=== PATIENT | female | born 1940 | race Caucasian/White ===

== ENCOUNTER 2018-05-20 12:22 | Emergency (ER) | payer MEDICARE, BC ==
[~2018-05-20] VITALS: Ht 157.5 cm; Wt 81.7 kg
[~2018-05-20 12:22] MED LIST: ACET325 PO; AEROECLIPSE II1 EACH INH; ALBU90OI INH; ALLO300; ALLO300 PO; ANTOXYBENA RIGHTEAR; ASMACORT; ASPI81CH PO; ASPI81EC; ASPI81EC PO; ATOR20 PO; AZIT250 PO; AZIT500 PO; Amlodipine Bes2.5 MG PO; Ativan0.5 MG PO; Avapro300 MG PO; BENZ100A PO; BUDE200IP INH; CALCAVITDA PO; CEFP200 PO; CHOL10002 PO; CODGUAEL PO; Cleocin HCl300 MG PO; Combigan Eye Dro5 ML OP; DIPH50 PO; DORZOPSO; DOXY100 PO; Doxycycline Hy100 MG PO; ERGO400; FISH1000; FISH1000 PO; FLONASE ALLERG9.9 ML; FLUT.05NI; FLUV20; FURO40; FURO40 PO; Glimepiride1 MG PO; Guaifenesin-Co118 ML PO; HYDGUAL120 PO; IBUP400; IBUP400 PO; IRBE150; IRBE150 PO; LATA.005SO BOTHEYES; LEVSOD125 PO; LEVSOD137 PO; LEVSOD150; LORA10 PO; METF500 PO; METF500C; METO50 PO; METO50ER; METO50ER PO; MONT10T PO; MOXI400 PO; MULVITMINF; MULVITMINF PO; Micro-K10 MEQ; Monodox100 MG PO; Mucinex600 MG PO; Norco 5-325 Ta1 EACH PO; OXYM.05NI; PRAV20 PO; PRED10 PO; PRED20 PO; PROCODE120 PO; Pepcid40 MG PO; Prednisone20 MG PO; Prednisone50 MG PO; RISE35; Tamiflu75 MG PO; VIACTIV SOFT C1 EAC1 PO; Ventolin Soln3 ML INH
[2018-05-20 14:03] LABS: BASOPHILS ABSOLUTE AUTO 0.03 K/mm3 (0.00-0.23); BASOPHILS PERCENT AUTO 0 % (0-2); EOSINOPHILS ABSOLUTE AUTO 0.02 K/mm3 (0.00-0.68); EOSINOPHILS PERCENT AUTO 0 % (0-6); Hematocrit 36.9 % (33.0-51.0); Hemoglobin 12.3 g/dL (11.5-16.0); IMMATURE GRAN ABSOLUTE AUTO 0.05 K/mm3 (0.00-0.10); IMMATURE GRAN PERCENT AUTO 1 % (0-1); LYMPHOCYTES PERCENT AUTO 18 % (21-46); MONOCYTES ABSOLUTE AUTO 0.81 K/mm3 (0.16-1.47); MONOCYTES PERCENT AUTO 8 % (4-13); Mean Corpuscular HGB Conc 33.3 g/dL (31.5-36.5); Mean Corpuscular Volume 87 fL (80-100); Mean Platelet Volume 9.3 fL (9.1-12.4); NEUTROPHILS ABSOLUTE AUTO 7.26 K/mm3 (1.96-9.15); NEUTROPHILS PERCENT AUTO 73 % (41-73); Platelet Count 377 K/mm3 (150-400); RDW Coefficient Variation 14.8 % (11.7-14.2); Red Blood Cell Count 4.24 M/mm3 (3.80-5.20); White Blood Cell Count 9.97 K/mm3 (4.00-11.30)
[2018-05-20 14:23] LABS: Alanine Aminotransfer (ALT/SGP 33 U/L (12-78); Albumin, Blood 3.4 g/dL (3.4-5.0); Albumin/Globulin Ratio 0.9 (0.8-1.8); Alk Phos 136 U/L (50-136); Anion Gap 12 mmol/L (6-16); Aspartate Aminotrans (AST/SGOT 18 U/L (12-37); Bilirubin, Total 0.4 mg/dL (0.1-1.0); Blood Urea Nitrogen 9 mg/dL (8-24); CO2, Blood 30 mmol/L (21-32); Calcium, Blood 9.8 mg/dL (8.5-10.1); Chloride, Blood 103 mmol/L (98-108); Creatinine, Blood 0.53 mg/dL (0.40-1.00); Globulin, Blood 3.7 g/dL (2.2-4.0); Glomerular Filtration Rate >60 (60-); Glucose, Blood 95 mg/dL (70-99); Potassium, Blood 2.8 mmol/L (3.5-5.5); Sodium, Blood 145 mmol/L (136-145); Total Protein, Blood 7.1 g/dL (6.4-8.2); Troponin I <0.015 ng/mL (0.000-0.040)
== END 2018-05-20 16:45 | disposition home or self-care (01) ==
LOC: ER 12:22
PROVIDERS: Physician Assistant
DX: J45.901 Unspecified asthma with (acute) exacerbation (principal); Z88.0 Allergy status to penicillin; Z88.1 Allergy status to other antibiotic agents; Z79.899 Other long term (current) drug therapy; Z79.84 Long term (current) use of oral hypoglycemic drugs; Z79.82 Long term (current) use of aspirin; Z79.52 Long term (current) use of systemic steroids; E78.00 Pure hypercholesterolemia, unspecified; E11.9 Type 2 diabetes mellitus without complications; I10 Essential (primary) hypertension; Z87.891 Personal history of nicotine dependence
CPT/HCPCS: 36415; 71046; 80053; 83880; 84484; 85025; 85379; 93005; 93010; 96360; 99285-25; J7030

== ENCOUNTER 2018-11-25 14:56 | Observation (INO) | payer MEDICARE, BC ==
[~2018-11-25] VITALS: Ht 157.5 cm; Wt 83.9 kg
[~2018-11-25 14:56] MED LIST changes: +DORZOLAMIDE 2%10 ML BOTHEYES; -DORZOPSO; -LATA.005SO BOTHEYES; +METF500C PO; +Xalatan2.5 ML BOTHEYES
[2018-11-25 15:41] LABS: BASOPHILS ABSOLUTE AUTO 0.04 K/mm3 (0.00-0.23); BASOPHILS PERCENT AUTO 0 % (0-2); EOSINOPHILS ABSOLUTE AUTO 0.01 K/mm3 (0.00-0.68); EOSINOPHILS PERCENT AUTO 0 % (0-6); Hematocrit 39.4 % (33.0-51.0); Hemoglobin 13.3 g/dL (11.5-16.0); IMMATURE GRAN PERCENT AUTO 1 % (0-1); LYMPHOCYTES ABSOLUTE AUTO 1.29 K/mm3 (0.84-5.20); LYMPHOCYTES PERCENT AUTO 10 % (21-46); MONOCYTES ABSOLUTE AUTO 1.21 K/mm3 (0.16-1.47); MONOCYTES PERCENT AUTO 9 % (4-13); Mean Corpuscular HGB 34.1 pg (26.0-34.0); Mean Corpuscular HGB Conc 33.8 g/dL (31.5-36.5); Mean Corpuscular Volume 101 fL (80-100); Mean Platelet Volume 9.7 fL (9.1-12.4); NEUTROPHILS ABSOLUTE AUTO 10.76 K/mm3 (1.96-9.15); NEUTROPHILS PERCENT AUTO 80 % (41-73); Platelet Count 390 K/mm3 (150-400); RDW Coefficient Variation 12.9 % (11.7-14.2); RDW Standard Deviation 47.9 fL (35.1-46.3); White Blood Cell Count 13.41 K/mm3 (4.00-11.30)
[2018-11-25 16:08] LABS: Albumin, Blood 3.7 g/dL (3.4-5.0); Albumin/Globulin Ratio 0.9 (0.8-1.8); Bilirubin, Total 0.3 mg/dL (0.1-1.0); Bun/Creatinine Ratio 21.1 (12.0-20.0); Calcium, Blood 10.6 mg/dL (8.5-10.1); Creatinine, Blood 1.52 mg/dL (0.40-1.00); Globulin, Blood 4.3 g/dL (2.2-4.0); Potassium, Blood 5.1 mmol/L (3.5-5.5)
[2018-11-25 18:40] LABS: Source, Urine Clean Catch
[2018-11-25 18:42] LABS: Bilirubin, Urine Neg (Neg); Blood, Urine 1+ (Neg); Glucose Qualitative, Urine Neg (Neg); Ketones, Urine Neg (Neg); Leukocyte Esterase, Urine Neg (Neg); Nitrite, Urine Neg (Neg); Protein, Urine 2+ (Neg); Specific Gravity, Urine 1.015 (1.003-1.022); Urobilinogen, Urine NORM (Normal)
[2018-11-25 18:43] LABS: Appearance, Urine Clear (Clear); Color, Urine Yellow (P-Yellow)
--- NOTE | 2018-11-25 18:45 | NUR ---
1830 PT ADMITTED TO MEDICAL FLOOR VIA GURNEY. PT SELF TRANSFERED TO BED WITHOUT ASSISTANCE. PT DENIES PAIN, SOB, N/V. PT ORIENTATED TO ROOM.
[2018-11-25 18:50] LABS: Red Blood Cells, Urine 0-2 /hpf (0-2)
[2018-11-25 18:51] LABS: Bacteria Mod /hpf; Squamous Epithelial Cells Rare /hpf (Few)
--- NOTE | 2018-11-25 22:06 | NUR ---
NS INFUSING AT 150mL/HR. CBG 136. AXO X4 AND SBA TO BR. PATIENT DENIES PAIN, SOB, AND N/V. EYE DROPS GIVEN PER EMAR. VSS/AFEBRILE. PATIENT RESTING AND WILL TRY TO GO TO SLEEP. CALL LIGHT IN REACH. WILL CONTINUE TO MONITOR.
--- NOTE | 2018-11-26 04:31 | NUR ---
SHIFT SUMMARY PATIENT HAD NO ACUTE CHANGES OBSERVED THIS SHIFT. AXO X4 AND SBA TO BR. WAITING ON STOOL SAMPLE FOR LAB. PIV REMAINS INTACT. NS INFUSING AT 150 mL/HR BAG 2 OF 2. VSS/AFEBRILE. DENIES PAIN, SOB, AND N/V. EYES DROPS GIVEN PER EMAR. TAKES MEDICATION WHOLE WITH WATER. CBG 136. COOPERATIVE WITH CARE. CALL LIGHT IN REACH. BED IN LOWEST POSITION. WILL CONTINUE TO MONITOR UNTIL DAY SHIFT NURSE ASSUMES CARE.
[2018-11-26 05:24] LABS: BASOPHILS ABSOLUTE AUTO 0.02 K/mm3 (0.00-0.23); BASOPHILS PERCENT AUTO 0 % (0-2); EOSINOPHILS ABSOLUTE AUTO 0.01 K/mm3 (0.00-0.68); EOSINOPHILS PERCENT AUTO 0 % (0-6); Hematocrit 32.8 % (33.0-51.0); Hemoglobin 10.9 g/dL (11.5-16.0); IMMATURE GRAN ABSOLUTE AUTO 0.06 K/mm3 (0.00-0.10); IMMATURE GRAN PERCENT AUTO 1 % (0-1); LYMPHOCYTES ABSOLUTE AUTO 1.15 K/mm3 (0.84-5.20); LYMPHOCYTES PERCENT AUTO 14 % (21-46); MONOCYTES ABSOLUTE AUTO 0.84 K/mm3 (0.16-1.47); MONOCYTES PERCENT AUTO 10 % (4-13); Mean Corpuscular HGB 34.3 pg (26.0-34.0); Mean Corpuscular HGB Conc 33.2 g/dL (31.5-36.5); Mean Corpuscular Volume 103 fL (80-100); Mean Platelet Volume 9.8 fL (9.1-12.4); NEUTROPHILS ABSOLUTE AUTO 6.09 K/mm3 (1.96-9.15); NEUTROPHILS PERCENT AUTO 75 % (41-73); Platelet Count 302 K/mm3 (150-400); RDW Coefficient Variation 12.7 % (11.7-14.2); Red Blood Cell Count 3.18 M/mm3 (3.80-5.20); White Blood Cell Count 8.17 K/mm3 (4.00-11.30)
[2018-11-26 05:46] LABS: Bun/Creatinine Ratio 18.5 (12.0-20.0); Calcium, Blood 9.3 mg/dL (8.5-10.1); Creatinine, Blood 1.19 mg/dL (0.40-1.00); Potassium, Blood 4.3 mmol/L (3.5-5.5)
--- NOTE | 2018-11-26 18:05 | NUR ---
SHIFT SUMMARY. A&OX4, INDEPENDENT TO BATHROOM NOW THAT PT IS SALINE LOCKED. PT DENIES PAIN, SOB, COUGH, N/V. NO BM TODAY. NO NEW CHANGES.
--- NOTE | 2018-11-27 04:00 | NUR ---
SHIFT SUMMARY PATIENT HAD NO ACUTE CHANGES OBSERVED THIS SHIFT. AXOX 4 AND INDEPENDENT IN THE ROOM. DENIES PAIN, SOB, AND N/V. WAITING ON STOOL SAMPLE FOR LAB. PIV REMAINS INTACT. VSS/AFEBRILE. CBG 132. SLEPT MOST OF SHIFT. COOPERATIVE WITH CARE. CALL LIGHT IN REACH. BED IN LOWEST POSITION. WILL CONTINUE TO MONITOR UNTIL DAY SHIFT NURSE ASSUMES CARE.
[2018-11-27] MEDS ORDERED: ONDA4ODT MM (11:49)
--- NOTE | 2018-11-27 13:29 | NUR ---
SHIFT SUMMARY LIZZETTE COMPLAIND OF NAUSEA THIS MORNING AND RECEIVED IV ZOFRAN WHICH HELPED. TOLERATED A FEW BITES OF BREAKFAST AND LUNCH. SHE STATES THAT SHE FEELS READY TO GO HOME. INDEP IN ROOM. R EYE RED AND SWOLLEN, DROPS APPLIED ORDERED. CBGS NOT REQUIRING COVERAGE TODAY. PIV REMOVED, PAPERWORK GONE OVER, NEW RX FAXED TO PHARMACY BY SAROJ SANCHEZ. DENIED PAIN. WCTM. RIDE IS ON THE WAY
== END 2018-11-27 14:00 | disposition home or self-care (01) ==
LOC: ER 14:56 → MEDS 14:57 → ER 17:31 → MEDS 17:31
PROVIDERS: Physician Assistant; ADMIT Internal Medicine
DX: N17.9 Acute kidney failure, unspecified (principal); E87.1 Hypo-osmolality and hyponatremia; E03.9 Hypothyroidism, unspecified; E11.9 Type 2 diabetes mellitus without complications; E78.00 Pure hypercholesterolemia, unspecified; I10 Essential (primary) hypertension; Z88.0 Allergy status to penicillin; Z88.1 Allergy status to other antibiotic agents; Z79.82 Long term (current) use of aspirin; Z87.891 Personal history of nicotine dependence; Z79.84 Long term (current) use of oral hypoglycemic drugs; Z23 Encounter for immunization
CPT/HCPCS: 36415; 71046; 80048; 80053; 81001; 82947; 83036; 84443; 85025; 87040; 87086; 90686; 93005; 93010; 94640; 94760; 96361; 96372; 96374; 96376; 99285-25; G0008; G0378; J1650; J1815; J2405; J7030

== ENCOUNTER 2018-12-10 18:32 | Emergency (ER) | payer MEDICARE, BC ==
[~2018-12-10] VITALS: Ht 157.5 cm; Wt 83.9 kg
[~2018-12-10 18:32] MED LIST changes: +ONDA4ODT MM
[2018-12-10 19:44] LABS: BASOPHILS ABSOLUTE AUTO 0.04 K/mm3 (0.00-0.23); BASOPHILS PERCENT AUTO 0 % (0-2); EOSINOPHILS ABSOLUTE AUTO 0.01 K/mm3 (0.00-0.68); EOSINOPHILS PERCENT AUTO 0 % (0-6); Hematocrit 38.9 % (33.0-51.0); Hemoglobin 12.7 g/dL (11.5-16.0); IMMATURE GRAN ABSOLUTE AUTO 0.05 K/mm3 (0.00-0.10); IMMATURE GRAN PERCENT AUTO 0 % (0-1); LYMPHOCYTES ABSOLUTE AUTO 1.04 K/mm3 (0.84-5.20); LYMPHOCYTES PERCENT AUTO 8 % (21-46); MONOCYTES PERCENT AUTO 7 % (4-13); Mean Corpuscular HGB 33.5 pg (26.0-34.0); Mean Corpuscular HGB Conc 32.6 g/dL (31.5-36.5); Mean Corpuscular Volume 103 fL (80-100); Mean Platelet Volume 9.6 fL (9.1-12.4); NEUTROPHILS ABSOLUTE AUTO 11.61 K/mm3 (1.96-9.15); NEUTROPHILS PERCENT AUTO 84 % (41-73); Platelet Count 472 K/mm3 (150-400); RDW Coefficient Variation 12.6 % (11.7-14.2); RDW Standard Deviation 46.8 fL (35.1-46.3); Red Blood Cell Count 3.79 M/mm3 (3.80-5.20); White Blood Cell Count 13.75 K/mm3 (4.00-11.30)
[2018-12-10 20:33] LABS: Alanine Aminotransfer (ALT/SGP 20 U/L (12-78); Albumin, Blood 3.3 g/dL (3.4-5.0); Albumin/Globulin Ratio 0.7 (0.8-1.8); Alk Phos 141 U/L (50-136); Anion Gap 12 mmol/L (6-16); Aspartate Aminotrans (AST/SGOT 16 U/L (12-37); Bilirubin, Total 0.4 mg/dL (0.1-1.0); Blood Urea Nitrogen 17 mg/dL (8-24); Bun/Creatinine Ratio 21.9 (12.0-20.0); CO2, Blood 22 mmol/L (21-32); Calcium, Blood 10.3 mg/dL (8.5-10.1); Chloride, Blood 101 mmol/L (98-108); Creatinine, Blood 0.78 mg/dL (0.40-1.00); Globulin, Blood 4.6 g/dL (2.2-4.0); Glomerular Filtration Rate >60 (60-); Glucose, Blood 186 mg/dL (70-99); Potassium, Blood 4.3 mmol/L (3.5-5.5); Sodium, Blood 135 mmol/L (136-145); Total Protein, Blood 7.9 g/dL (6.4-8.2); Troponin I <0.015 ng/mL (0.000-0.040)
[2018-12-11] MEDS ORDERED: BENZ100A PO (00:02)
== END 2018-12-11 00:31 | disposition home or self-care (01) ==
LOC: ER 18:32
PROVIDERS: Physician Assistant
DX: J40 Bronchitis, not specified as acute or chronic (principal); E11.9 Type 2 diabetes mellitus without complications; I10 Essential (primary) hypertension; E78.00 Pure hypercholesterolemia, unspecified; Z88.0 Allergy status to penicillin; Z88.1 Allergy status to other antibiotic agents; Z88.8 Allergy status to other drugs, medicaments and biological substances; Z79.82 Long term (current) use of aspirin; Z79.84 Long term (current) use of oral hypoglycemic drugs; Z79.899 Other long term (current) drug therapy; Z87.891 Personal history of nicotine dependence
CPT/HCPCS: 71046; 80053; 84484; 85025; 93005; 93010

== ENCOUNTER 2018-12-23 16:58 | Emergency (ER) | payer MEDICARE, BC ==
[~2018-12-23] VITALS: Ht 157.5 cm; Wt 83.9 kg
[2018-12-23 17:58] LABS: BASOPHILS ABSOLUTE AUTO 0.05 K/mm3 (0.00-0.23); BASOPHILS PERCENT AUTO 0 % (0-2); EOSINOPHILS ABSOLUTE AUTO 0.02 K/mm3 (0.00-0.68); EOSINOPHILS PERCENT AUTO 0 % (0-6); Hematocrit 40.3 % (33.0-51.0); IMMATURE GRAN ABSOLUTE AUTO 0.05 K/mm3 (0.00-0.10); IMMATURE GRAN PERCENT AUTO 0 % (0-1); LYMPHOCYTES ABSOLUTE AUTO 1.34 K/mm3 (0.84-5.20); LYMPHOCYTES PERCENT AUTO 12 % (21-46); MONOCYTES ABSOLUTE AUTO 0.88 K/mm3 (0.16-1.47); MONOCYTES PERCENT AUTO 8 % (4-13); Mean Corpuscular HGB 32.7 pg (26.0-34.0); Mean Corpuscular HGB Conc 32.3 g/dL (31.5-36.5); Mean Corpuscular Volume 102 fL (80-100); Mean Platelet Volume 9.6 fL (9.1-12.4); NEUTROPHILS ABSOLUTE AUTO 9.29 K/mm3 (1.96-9.15); NEUTROPHILS PERCENT AUTO 80 % (41-73); Platelet Count 399 K/mm3 (150-400); RDW Coefficient Variation 12.4 % (11.7-14.2); RDW Standard Deviation 46.7 fL (35.1-46.3); Red Blood Cell Count 3.97 M/mm3 (3.80-5.20); White Blood Cell Count 11.63 K/mm3 (4.00-11.30)
[2018-12-23 18:32] LABS: Alanine Aminotransfer (ALT/SGP 17 U/L (12-78); Albumin, Blood 3.6 g/dL (3.4-5.0); Albumin/Globulin Ratio 0.8 (0.8-1.8); Alk Phos 137 U/L (50-136); Anion Gap 12 mmol/L (6-16); Aspartate Aminotrans (AST/SGOT 14 U/L (12-37); Bilirubin, Total 0.4 mg/dL (0.1-1.0); Blood Urea Nitrogen 26 mg/dL (8-24); Bun/Creatinine Ratio 29.7 (12.0-20.0); CO2, Blood 21 mmol/L (21-32); Calcium, Blood 10.6 mg/dL (8.5-10.1); Chloride, Blood 100 mmol/L (98-108); Creatinine, Blood 0.88 mg/dL (0.40-1.00); Globulin, Blood 4.7 g/dL (2.2-4.0); Glomerular Filtration Rate >60 (60-); Glucose, Blood 153 mg/dL (70-99); Potassium, Blood 4.5 mmol/L (3.5-5.5); Sodium, Blood 133 mmol/L (136-145); Total Protein, Blood 8.3 g/dL (6.4-8.2)
[2018-12-23 20:15] LABS: Source, Urine Clean Catch
[2018-12-23 20:19] LABS: Blood, Urine Neg (Neg); Glucose Qualitative, Urine Neg (Neg); Ketones, Urine 1+ (Neg); Leukocyte Esterase, Urine 3+ (Neg); Nitrite, Urine Neg (Neg); Protein, Urine 2+ (Neg); Urobilinogen, Urine 1+ (Normal)
[2018-12-23 20:31] LABS: Bilirubin, Urine 1+ (Neg)
[2018-12-23 20:32] LABS: Appearance, Urine Clear (Clear); Color, Urine Orange (P-Yellow)
[2018-12-23 20:38] LABS: Bacteria Rare /hpf; Mucus Mod (0-Heavy); Red Blood Cells, Urine Rare /hpf (0-2); Squamous Epithelial Cells Few /hpf (Few)
[2018-12-23] MEDS ORDERED: Bactrim Ds Tab1 EACH PO (22:02)
[2018-12-23] MEDS ORDERED: ONDA4ODT MM (22:02)
== END 2018-12-23 22:28 | disposition home or self-care (01) ==
LOC: ER 16:58
PROVIDERS: Emergency Medicine
DX: K52.9 Noninfective gastroenteritis and colitis, unspecified (principal); N39.0 Urinary tract infection, site not specified; Z88.0 Allergy status to penicillin; Z88.1 Allergy status to other antibiotic agents; Z79.899 Other long term (current) drug therapy; Z79.84 Long term (current) use of oral hypoglycemic drugs; Z79.82 Long term (current) use of aspirin; E78.00 Pure hypercholesterolemia, unspecified; E11.9 Type 2 diabetes mellitus without complications; I10 Essential (primary) hypertension; J45.909 Unspecified asthma, uncomplicated
CPT/HCPCS: 36415; 80053; 81001; 83690; 85025; 87086; 96361; 96374; 96376; 99283-25; J2405; J7030

== ENCOUNTER 2018-12-27 18:25 | Emergency (ER) | payer MEDICARE, BC ==
[~2018-12-27] VITALS: Ht 157.5 cm; Wt 83.9 kg
[~2018-12-27 18:25] MED LIST changes: +Bactrim Ds Tab1 EACH PO
[2018-12-27 20:56] LABS: Source, Urine Clean Catch
[2018-12-27 21:00] LABS: Appearance, Urine Hazy (Clear); Bilirubin, Urine 1+ (Neg); Blood, Urine Neg (Neg); Color, Urine Yellow (P-Yellow); Glucose Qualitative, Urine Neg (Neg); Ketones, Urine 1+ (Neg); Leukocyte Esterase, Urine 1+ (Neg); Nitrite, Urine Neg (Neg); Protein, Urine 1+ (Neg); Specific Gravity, Urine 1.025 (1.003-1.022); Urobilinogen, Urine NORM (Normal)
[2018-12-27 21:29] LABS: Bacteria Few /hpf; Other Crystals Many /hpf; Red Blood Cells, Urine Not Seen /hpf (0-2); Squamous Epithelial Cells Not Seen /hpf (Few)
[2018-12-27 21:39] LABS: BASOPHILS ABSOLUTE AUTO 0.04 K/mm3 (0.00-0.23); BASOPHILS PERCENT AUTO 0 % (0-2); EOSINOPHILS ABSOLUTE AUTO 0.02 K/mm3 (0.00-0.68); EOSINOPHILS PERCENT AUTO 0 % (0-6); Hematocrit 37.6 % (33.0-51.0); Hemoglobin 12.4 g/dL (11.5-16.0); IMMATURE GRAN ABSOLUTE AUTO 0.03 K/mm3 (0.00-0.10); IMMATURE GRAN PERCENT AUTO 0 % (0-1); LYMPHOCYTES PERCENT AUTO 11 % (21-46); MONOCYTES PERCENT AUTO 11 % (4-13); Mean Corpuscular HGB 32.8 pg (26.0-34.0); Mean Corpuscular Volume 100 fL (80-100); Mean Platelet Volume 9.7 fL (9.1-12.4); NEUTROPHILS ABSOLUTE AUTO 9.23 K/mm3 (1.96-9.15); NEUTROPHILS PERCENT AUTO 77 % (41-73); Platelet Count 381 K/mm3 (150-400); RDW Coefficient Variation 12.4 % (11.7-14.2); RDW Standard Deviation 45.8 fL (35.1-46.3); Red Blood Cell Count 3.78 M/mm3 (3.80-5.20); White Blood Cell Count 11.92 K/mm3 (4.00-11.30)
[2018-12-27 21:59] LABS: Albumin, Blood 3.8 g/dL (3.4-5.0); Albumin/Globulin Ratio 0.9 (0.8-1.8); Bilirubin, Total 0.2 mg/dL (0.1-1.0); Bun/Creatinine Ratio 18.5 (12.0-20.0); Calcium, Blood 10.6 mg/dL (8.5-10.1); Creatinine, Blood 1.3 mg/dL (0.40-1.00); Globulin, Blood 4.3 g/dL (2.2-4.0); Potassium, Blood 4.8 mmol/L (3.5-5.5); Total Protein, Blood 8.1 g/dL (6.4-8.2)
[2018-12-27] MEDS ORDERED: CEFP200 PO (22:14)
[2018-12-27] MEDS ORDERED: Zofran4 MG PO (23:05)
== END 2018-12-27 23:11 | disposition home or self-care (01) ==
LOC: ER 18:25
PROVIDERS: Physician Assistant
DX: E86.0 Dehydration (principal); N39.0 Urinary tract infection, site not specified; R19.7 Diarrhea, unspecified; E11.9 Type 2 diabetes mellitus without complications; E78.00 Pure hypercholesterolemia, unspecified; I10 Essential (primary) hypertension; Z88.0 Allergy status to penicillin; Z79.899 Other long term (current) drug therapy
CPT/HCPCS: 36415; 80053; 81001; 85025; 87086; 96361; 96365; 99283-25; J0696; J7030

== ENCOUNTER 2019-01-18 13:24 | Emergency (ER) | payer MEDICARE, BC ==
[~2019-01-18] VITALS: Ht 157.5 cm; Wt 81.7 kg
[~2019-01-18 13:24] MED LIST changes: +Zofran4 MG PO
[2019-01-18 14:29] LABS: BASOPHILS ABSOLUTE AUTO 0.04 K/mm3 (0.00-0.23); BASOPHILS PERCENT AUTO 0 % (0-2); EOSINOPHILS ABSOLUTE AUTO 0.02 K/mm3 (0.00-0.68); EOSINOPHILS PERCENT AUTO 0 % (0-6); Hematocrit 41.4 % (33.0-51.0); Hemoglobin 13.3 g/dL (11.5-16.0); IMMATURE GRAN ABSOLUTE AUTO 0.03 K/mm3 (0.00-0.10); IMMATURE GRAN PERCENT AUTO 0 % (0-1); LYMPHOCYTES PERCENT AUTO 13 % (21-46); MONOCYTES ABSOLUTE AUTO 0.96 K/mm3 (0.16-1.47); MONOCYTES PERCENT AUTO 10 % (4-13); Mean Corpuscular HGB 31.8 pg (26.0-34.0); Mean Corpuscular HGB Conc 32.1 g/dL (31.5-36.5); Mean Corpuscular Volume 99 fL (80-100); NEUTROPHILS ABSOLUTE AUTO 6.96 K/mm3 (1.96-9.15); NEUTROPHILS PERCENT AUTO 76 % (41-73); Platelet Count 383 K/mm3 (150-400); RDW Coefficient Variation 13.2 % (11.7-14.2); RDW Standard Deviation 47.7 fL (35.1-46.3); Red Blood Cell Count 4.18 M/mm3 (3.80-5.20); White Blood Cell Count 9.21 K/mm3 (4.00-11.30)
[2019-01-18 15:10] LABS: Alanine Aminotransfer (ALT/SGP 22 U/L (12-78); Albumin, Blood 4.2 g/dL (3.4-5.0); Alk Phos 149 U/L (50-136); Anion Gap 10 mmol/L (6-16); Aspartate Aminotrans (AST/SGOT 14 U/L (12-37); Bilirubin, Total 0.4 mg/dL (0.1-1.0); Blood Urea Nitrogen 19 mg/dL (8-24); Bun/Creatinine Ratio 22.3 (12.0-20.0); CO2, Blood 22 mmol/L (21-32); Calcium, Blood 10.6 mg/dL (8.5-10.1); Chloride, Blood 103 mmol/L (98-108); Creatinine, Blood 0.85 mg/dL (0.40-1.00); Globulin, Blood 4.2 g/dL (2.2-4.0); Glomerular Filtration Rate >60 (60-); Glucose, Blood 129 mg/dL (70-99); Potassium, Blood 4.5 mmol/L (3.5-5.5); Sodium, Blood 135 mmol/L (136-145); Total Protein, Blood 8.4 g/dL (6.4-8.2)
[2019-01-18 15:46] LABS: Source, Urine Clean Catch
[2019-01-18 16:02] LABS: Blood, Urine 1+ (Neg); Glucose Qualitative, Urine Neg (Neg); Ketones, Urine 1+ (Neg); Leukocyte Esterase, Urine 3+ (Neg); Nitrite, Urine Neg (Neg); Protein, Urine 2+ (Neg); Specific Gravity, Urine 1.025 (1.003-1.022); Urobilinogen, Urine 1+ (Normal)
[2019-01-18 16:12] LABS: Bilirubin, Urine 1+ (Neg)
[2019-01-18 16:13] LABS: Appearance, Urine Clear (Clear); Color, Urine Yellow (P-Yellow); White Blood Cells, Urine TNTC /hpf (0-5)
[2019-01-18 16:14] LABS: Bacteria Mod /hpf; Squamous Epithelial Cells Few /hpf (Few)
[2019-01-18] MEDS ORDERED: Macrobid 100 M100 MG PO (16:35)
[2019-01-18] MEDS ORDERED: Zofran4 MG PO (16:36)
== END 2019-01-18 16:55 | disposition home or self-care (01) ==
LOC: ER 13:24
PROVIDERS: Physician Assistant
DX: N39.0 Urinary tract infection, site not specified (principal); Z88.0 Allergy status to penicillin; Z88.1 Allergy status to other antibiotic agents; Z79.899 Other long term (current) drug therapy; Z79.82 Long term (current) use of aspirin; E78.5 Hyperlipidemia, unspecified; E11.9 Type 2 diabetes mellitus without complications; I10 Essential (primary) hypertension; E03.9 Hypothyroidism, unspecified; Z87.891 Personal history of nicotine dependence
CPT/HCPCS: 36415; 76770; 80053; 81001; 83690; 85025; 87086; 96361; 96374; 99284-25; J2405; J7120

== ENCOUNTER 2019-11-10 17:36 | Emergency (ER) | payer MEDICARE, BC ==
[~2019-11-10] VITALS: Ht 157.5 cm; Wt 72.6 kg
[~2019-11-10 17:36] MED LIST changes: +Macrobid 100 M100 MG PO
[2019-11-10 19:29] LABS: BASOPHILS ABSOLUTE AUTO 0.02 K/mm3 (0.00-0.23); BASOPHILS PERCENT AUTO 0 % (0-2); EOSINOPHILS ABSOLUTE AUTO 0.09 K/mm3 (0.00-0.68); EOSINOPHILS PERCENT AUTO 1 % (0-6); Hematocrit 38.9 % (33.0-51.0); Hemoglobin 12.7 g/dL (11.5-16.0); IMMATURE GRAN ABSOLUTE AUTO 0.02 K/mm3 (0.00-0.10); IMMATURE GRAN PERCENT AUTO 0 % (0-1); LYMPHOCYTES ABSOLUTE AUTO 1.68 K/mm3 (0.84-5.20); LYMPHOCYTES PERCENT AUTO 20 % (21-46); MONOCYTES PERCENT AUTO 10 % (4-13); Mean Corpuscular HGB 30.2 pg (26.0-34.0); Mean Corpuscular HGB Conc 32.6 g/dL (31.5-36.5); Mean Corpuscular Volume 93 fL (80-100); Mean Platelet Volume 9.7 fL (9.1-12.4); NEUTROPHILS ABSOLUTE AUTO 5.82 K/mm3 (1.96-9.15); NEUTROPHILS PERCENT AUTO 69 % (41-73); Platelet Count 349 K/mm3 (150-400); RDW Coefficient Variation 13.4 % (11.7-14.2); RDW Standard Deviation 45.3 fL (35.1-46.3); White Blood Cell Count 8.43 K/mm3 (4.00-11.30)
[2019-11-10 19:50] LABS: Alanine Aminotransfer (ALT/SGP 28 U/L (12-78); Albumin, Blood 4.1 g/dL (3.4-5.0); Albumin/Globulin Ratio 1.1 (0.8-1.8); Alk Phos 192 U/L (50-136); Anion Gap 6 mmol/L (6-16); Aspartate Aminotrans (AST/SGOT 18 U/L (12-37); Bilirubin, Total 0.3 mg/dL (0.1-1.0); Blood Urea Nitrogen 8 mg/dL (8-24); Bun/Creatinine Ratio 14.4 (12.0-20.0); CO2, Blood 25 mmol/L (21-32); Calcium, Blood 10.1 mg/dL (8.5-10.1); Chloride, Blood 109 mmol/L (98-108); Creatinine, Blood 0.55 mg/dL (0.40-1.00); Globulin, Blood 3.9 g/dL (2.2-4.0); Glomerular Filtration Rate >60 (60-); Glucose, Blood 174 mg/dL (70-99); Potassium, Blood 3.2 mmol/L (3.5-5.5); Sodium, Blood 140 mmol/L (136-145); Troponin I <0.015 ng/mL (0.000-0.040)
== END 2019-11-10 21:48 | disposition home or self-care (01) ==
LOC: ER 17:36
PROVIDERS: Physician Assistant
DX: J45.901 Unspecified asthma with (acute) exacerbation (principal); E11.9 Type 2 diabetes mellitus without complications; I10 Essential (primary) hypertension; Z88.0 Allergy status to penicillin; Z88.1 Allergy status to other antibiotic agents; Z79.899 Other long term (current) drug therapy; Z79.51 Long term (current) use of inhaled steroids; Z79.82 Long term (current) use of aspirin; Z79.84 Long term (current) use of oral hypoglycemic drugs
CPT/HCPCS: 36415; 71046; 80053; 84484; 85025; 93005; 93010; 99284-25

== ENCOUNTER 2022-12-24 19:08 | Inpatient (IN) | payer MEDICARE, BC ==
[~2022-12-24] VITALS: Ht 157.5 cm; Wt 77.6 kg
[~2022-12-24 19:08] MED LIST changes: +AMLO5 PO; -Amlodipine Bes2.5 MG PO; -Avapro300 MG PO; +BRIMONIDINE-TIMO5 ML BOTHEYES; -Combigan Eye Dro5 ML OP; +LATA.005SO BOTHEYES; -Micro-K10 MEQ; +POTA10T PO; -Xalatan2.5 ML BOTHEYES
[2022-12-24] MEDS ORDERED: Azopt10 ML BOTHEYES (19:28)
[2022-12-24] MEDS ORDERED: MONT10T PO (19:28)
[2022-12-24] MEDS ORDERED: Avapro300 MG PO (19:29)
[2022-12-24] MEDS ORDERED: ZYRTEC10 M2 PO (19:29)
[2022-12-24] MEDS ORDERED: LEVOTHYROXINE150 MC9 PO (19:30)
[2022-12-24 19:36] LABS: BASOPHILS ABSOLUTE AUTO 0.02 K/mm3 (0.00-0.23); BASOPHILS PERCENT AUTO 0 % (0-2); EOSINOPHILS ABSOLUTE AUTO 0.06 K/mm3 (0.00-0.68); EOSINOPHILS PERCENT AUTO 1 % (0-6); Hematocrit 35.1 % (33.0-51.0); IMMATURE GRAN ABSOLUTE AUTO 0.04 K/mm3 (0.00-0.10); IMMATURE GRAN PERCENT AUTO 1 % (0-1); LYMPHOCYTES ABSOLUTE AUTO 1.12 K/mm3 (0.84-5.20); LYMPHOCYTES PERCENT AUTO 13 % (21-46); MONOCYTES ABSOLUTE AUTO 0.67 K/mm3 (0.16-1.47); MONOCYTES PERCENT AUTO 8 % (4-13); Mean Corpuscular HGB 32.1 pg (26.0-34.0); Mean Corpuscular HGB Conc 34.2 g/dL (31.5-36.5); Mean Corpuscular Volume 94 fL (80-100); Mean Platelet Volume 9.4 fL (9.1-12.4); NEUTROPHILS ABSOLUTE AUTO 6.61 K/mm3 (1.96-9.15); NEUTROPHILS PERCENT AUTO 78 % (41-73); Platelet Count 241 K/mm3 (150-400); RDW Coefficient Variation 13.7 % (11.7-14.2); RDW Standard Deviation 46.7 fL (35.1-46.3); Red Blood Cell Count 3.74 M/mm3 (3.80-5.20); White Blood Cell Count 8.52 K/mm3 (4.00-11.30)
[2022-12-24 20:06] LABS: Albumin, Blood 3.6 g/dL (3.4-5.0); Albumin/Globulin Ratio 0.9 (0.8-1.8); Bilirubin, Total 0.5 mg/dL (0.1-1.0); Bun/Creatinine Ratio 22.9 (12.0-20.0); Calcium, Blood 9.7 mg/dL (8.5-10.1); Creatinine, Blood 0.92 mg/dL (0.40-1.00); Globulin, Blood 3.9 g/dL (2.2-4.0); Potassium, Blood 4.3 mmol/L (3.5-5.5); Total Protein, Blood 7.5 g/dL (6.4-8.2)
[2022-12-24 21:23] LABS: Influenza A, PCR NEGATIVE (NEGATIVE); Influenza B, PCR NEGATIVE (NEGATIVE); Resp Syncytial Virus, PCR NEGATIVE (NEGATIVE); SARS-Cov-2 (COVID-19) PCR, MMC NEGATIVE (NEGATIVE)
[2022-12-24] MEDS ORDERED: ESOMEPRAZOLE MA20 MG PO (23:30)
[2022-12-24] MEDS ORDERED: FUROSEMIDE40 MG PO (23:38)
[2022-12-24] MEDS ORDERED: Pulmicort Fle180 MCG INH (23:38)
[2022-12-25] MEDS ORDERED: ALBU90OI INH (03:22)
[2022-12-25] MEDS ORDERED: NASACORT10.8 ML (03:24)
[2022-12-25] MEDS ORDERED: VITAMIN D5000 UNIT PO (03:25)
[2022-12-25] MEDS ORDERED: Acetaminophen650 M1 PO (03:25)
[2022-12-25] MEDS ORDERED: CODACE30 PO (03:26)
[2022-12-25] MEDS ORDERED: ALMACONE SUSPE355 ML PO (03:27)
[2022-12-25] MEDS ORDERED: BENZ100A PO (03:28)
[2022-12-25] MEDS ORDERED: BISA10S PR (03:28)
[2022-12-25] MEDS ORDERED: DICLOFENAC SOD100 G1 TOP (03:29)
[2022-12-25] MEDS ORDERED: DULCOLAX400 MG/5 M PO (03:30)
[2022-12-25] MEDS ORDERED: LOPE2C PO (03:30)
[2022-12-25] MEDS ORDERED: [UNRECOGNIZED DRUG - OTHER] PO (03:31)
[2022-12-25] MEDS ORDERED: ONDA4ODT MM (03:31)
[2022-12-25] MEDS ORDERED: PROLIA60 MG/1 ML SC (03:33)
--- NOTE | 2022-12-25 05:21 | NUR ---
SHIFT SUMMARY PT ADMITTED AT 2345- PT A&O X 4, ADMISSION ASSESSMENT DONE- PT AMBULATED TO BR WITH WALKER SBA- PT TOLERATED WELL- PT SLEPT T/O THE NIGHT - BED LOW POSITION, CALL LIGHT WITHIN REACH, BED ALARM IN PLACE
[2022-12-25 05:37] LABS: BASOPHILS ABSOLUTE AUTO 0.01 K/mm3 (0.00-0.23); BASOPHILS PERCENT AUTO 0 % (0-2); EOSINOPHILS PERCENT AUTO 0 % (0-6); Hematocrit 35.8 % (33.0-51.0); Hemoglobin 12.4 g/dL (11.5-16.0); IMMATURE GRAN ABSOLUTE AUTO 0.03 K/mm3 (0.00-0.10); IMMATURE GRAN PERCENT AUTO 0 % (0-1); LYMPHOCYTES ABSOLUTE AUTO 0.69 K/mm3 (0.84-5.20); LYMPHOCYTES PERCENT AUTO 8 % (21-46); MONOCYTES ABSOLUTE AUTO 0.15 K/mm3 (0.16-1.47); MONOCYTES PERCENT AUTO 2 % (4-13); Mean Corpuscular HGB 32.6 pg (26.0-34.0); Mean Corpuscular HGB Conc 34.6 g/dL (31.5-36.5); Mean Corpuscular Volume 94 fL (80-100); NEUTROPHILS PERCENT AUTO 90 % (41-73); Platelet Count 236 K/mm3 (150-400); RDW Coefficient Variation 13.7 % (11.7-14.2); RDW Standard Deviation 46.8 fL (35.1-46.3); White Blood Cell Count 8.48 K/mm3 (4.00-11.30)
[2022-12-25 06:19] LABS: Albumin, Blood 3.6 g/dL (3.4-5.0); Albumin/Globulin Ratio 0.9 (0.8-1.8); Bilirubin, Total 0.3 mg/dL (0.1-1.0); Bun/Creatinine Ratio 20.7 (12.0-20.0); Calcium, Blood 9.8 mg/dL (8.5-10.1); Creatinine, Blood 0.97 mg/dL (0.40-1.00); Potassium, Blood 4.4 mmol/L (3.5-5.5); Total Protein, Blood 7.6 g/dL (6.4-8.2)
[2022-12-25] MEDS ORDERED: COMBIGAN 0.2%-0.5 ML BOTHEYES (11:33)
[2022-12-25] MEDS ORDERED: 1/2 NS 250ml250 ML (11:34)
--- NOTE | 2022-12-25 18:42 | NUR ---
SHIFT SUMMARY PT IS ALERT AND ORIENTED X4. INDEPENDENT IN ROOM UP TO THE CHAIR FOR MEALS. PT HAS QUESTIONS ABOUT CODE STATUS. PALLIATIVE CARE CONSULTATION ORDERED. BED IS IN THE LOWEST POSITION WITH THE CALL LIGHT IN PLACE. PT IS ABLE TO EXPRESS NEEDS
--- NOTE | 2022-12-26 03:32 | NUR ---
"CHUCK" FROM "[facility]" CALLED FOR UPDATE. PT AGREED FOR NURSE TO CONTACT HER.
--- NOTE | 2022-12-26 03:49 | NUR ---
METEOROLOGICAL TECHNICIAN SUMMARY VSS. AWAKE AT INTERVALS. SOME INSOMNIA NOTED. LUNG SOUNDS CONGESTED AND DIMINISHED PER AUSCULTATION. TOLERATED IVF, NOW LINE SALINE LOCKED. "CHUCK" FROM [facility] RECEIVED UPDATE (PER PT AGREEMENT). REMAINS A STAND BY ASSIST. CALL LIGHT IN REACH. WILL CONTINUE TO MONITOR
[2022-12-26 05:17] LABS: Hematocrit 30.1 % (33.0-51.0); Hemoglobin 10.7 g/dL (11.5-16.0); Mean Corpuscular HGB 32.7 pg (26.0-34.0); Mean Corpuscular HGB Conc 35.5 g/dL (31.5-36.5); Mean Corpuscular Volume 92 fL (80-100); Mean Platelet Volume 9.5 fL (9.1-12.4); Platelet Count 259 K/mm3 (150-400); RDW Coefficient Variation 13.7 % (11.7-14.2); RDW Standard Deviation 45.9 fL (35.1-46.3); Red Blood Cell Count 3.27 M/mm3 (3.80-5.20); White Blood Cell Count 13.11 K/mm3 (4.00-11.30)
[2022-12-26 05:43] LABS: Albumin, Blood 2.9 g/dL (3.4-5.0); Anion Gap 7 mmol/L (6-16); Blood Urea Nitrogen 22 mg/dL (8-24); CO2, Blood 22 mmol/L (21-32); Calcium, Blood 9.3 mg/dL (8.5-10.1); Chloride, Blood 101 mmol/L (98-108); Creatinine, Blood 0.73 mg/dL (0.40-1.00); Glomerular Filtration Rate 82 (60-); Glucose, Blood 192 mg/dL (70-99); Phosphorus, Blood 2.8 mg/dL (2.5-4.9); Potassium, Blood 4.5 mmol/L (3.5-5.5); Sodium, Blood 130 mmol/L (136-145)
--- NOTE | 2022-12-26 16:40 | NUR ---
SHIFT SUMMARY PT LACTIC ACID ELEVATED & REPORTED TO DR. DEGROOT THIS AM WITHOUT NEW ORDERS. PT IND IN ROOM, ALERT & ORIENTED. C/O BEING COLD MOST OF THE DAY. K PAD SET UP TO HELP WITH PT DISCOMFORT RELATED TO THE TEMPERATURE. NO OTHER ACUTE CHANGES IN ASSESSMENT AT THIS TIME. VS REVIEWED. PT DENIES OTHER NEEDS AT THIS TIME. CALL LIGHT IN REACH.
[2022-12-27 06:26] LABS: Albumin, Blood 3.7 g/dL (3.4-5.0); Anion Gap 8 mmol/L (6-16); Blood Urea Nitrogen 25 mg/dL (8-24); Bun/Creatinine Ratio 29.3 (12.0-20.0); CO2, Blood 24 mmol/L (21-32); Calcium, Blood 9.8 mg/dL (8.5-10.1); Chloride, Blood 98 mmol/L (98-108); Creatinine, Blood 0.85 mg/dL (0.40-1.00); Glomerular Filtration Rate 68 (60-); Glucose, Blood 155 mg/dL (70-99); Phosphorus, Blood 2.9 mg/dL (2.5-4.9); Potassium, Blood 4.3 mmol/L (3.5-5.5); Sodium, Blood 130 mmol/L (136-145)
--- NOTE | 2022-12-27 06:50 | NUR ---
TEST DECK SUPERVISOR SUMMARY: A&Ox4. PLEASANT AND COOPERATIVE WITH CARE. CALLS APPROPRIATELY AND IS ABLE TO COMMUNICATE NEEDS EFFECTIVELY. ORIENTED TO ABILITIES AND EXHIBITS GOOD JUDGMENT. INDEPENDENT WITHIN ROOM. VSS. PRN APAP ADMINISTERED LAST NIGHT FOR C/O BACK PAIN. NO ACUTE CONCERNS T/O THE NIGHT. LABS DRAWN THIS AM; NO CRITICAL RESULTS RECEIVED AT THIS TIME. REPORT TO ONCOMING RN.
[2022-12-27] MEDS ORDERED: Tessalon200 MG PO (12:24)
[2022-12-27] MEDS ORDERED: AZIT500 PO (12:24)
[2022-12-27] MEDS ORDERED: CEFD300 PO (12:48)
[2022-12-27] MEDS ORDERED: VISBIOME 112.51 EACH PO (12:49)
[2022-12-27] MEDS ORDERED: Prednisone10 MG PO (12:50)
--- NOTE | 2022-12-27 13:44 | NUR ---
DISCHARGE PT DISCHARGED AND WHEELED OUT BY AIDE TO HER PICKUP FROM HER CARE FACILITY. PT HAD NO CHANGES IN ASSESSMENT PRIOR TO DC. IV REMOVED & INTACT PRIOR TO DC.
== END 2022-12-27 13:35 | disposition home or self-care (01) | DRG 871 ==
LOC: ER 19:08 → MEDS 23:29
PROVIDERS: Internal Medicine; Student in an Organized Health Care Education/Training Program; ADMIT Internal Medicine
DX: A41.9 Sepsis, unspecified organism (principal); J18.9 Pneumonia, unspecified organism; J44.1 Chronic obstructive pulmonary disease with (acute) exacerbation; J44.0 Chronic obstructive pulmonary disease with (acute) lower respiratory infection; E87.20 Acidosis, unspecified; E87.1 Hypo-osmolality and hyponatremia; R65.20 Severe sepsis without septic shock; Z66 Do not resuscitate; E87.70 Fluid overload, unspecified; E11.9 Type 2 diabetes mellitus without complications; I10 Essential (primary) hypertension; E78.5 Hyperlipidemia, unspecified; M10.9 Gout, unspecified; K21.9 Gastro-esophageal reflux disease without esophagitis; H40.9 Unspecified glaucoma; K59.00 Constipation, unspecified; R12 Heartburn; E89.0 Postprocedural hypothyroidism; Z20.822 Contact with and (suspected) exposure to COVID-19; H02.401 Unspecified ptosis of right eyelid; Z79.84 Long term (current) use of oral hypoglycemic drugs; Z98.890 Other specified postprocedural states; Z85.51 Personal history of malignant neoplasm of bladder; Z88.0 Allergy status to penicillin; Z88.1 Allergy status to other antibiotic agents; Z79.899 Other long term (current) drug therapy; Z79.51 Long term (current) use of inhaled steroids; Z79.02 Long term (current) use of antithrombotics/antiplatelets; Z90.6 Acquired absence of other parts of urinary tract; Z87.891 Personal history of nicotine dependence; Z92.21 Personal history of antineoplastic chemotherapy; Z92.3 Personal history of irradiation; Z85.79 Personal history of other malignant neoplasms of lymphoid, hematopoietic and related tissues
CPT/HCPCS: 0241U; 36415; 71046; 80053; 80069; 82947; 83605; 83880; 84145; 85025; 85027; 86713; 87040; 93005; 93010; 94640; 94664; 94760; 96365; 96375; 99285-25; A9270; J0456; J0696; J1650; J1815; J1940; J2930; J7030; J7050; J7512

== ENCOUNTER → 2023-08-01 | Outpatient (CLI) | payer MEDICARE, BC ==
[~2023-08-01] MED LIST changes: +1/2 NS 250ml250 ML; +ALLEGRA ALLERG180 MG PO; +ALMACONE SUSPE355 ML PO; +Acetaminophen650 M1 PO; +Avapro300 MG PO; +Azopt10 ML BOTHEYES; +BISA10S PR; +CEFD300 PO; +CODACE30 PO; +COMBIGAN 0.2%-0.5 ML BOTHEYES; +DICLOFENAC SOD100 G1 TOP; +DULCOLAX400 MG/5 M PO; +ESOMEPRAZOLE MA20 MG PO; +FUROSEMIDE40 MG PO; +LEVOTHYROXINE150 MC9 PO; +LISI5 PO; +LOPE2C PO; +METOPROLOL SUCC25 MG PO; +NASACORT10.8 ML; +PROLIA60 MG/1 ML SC; +Prednisone10 MG PO; +Pulmicort Fle180 MCG INH; +Tessalon200 MG PO; +VISBIOME 112.51 EACH PO; +VITAMIN D5000 UNIT PO; +ZYRTEC10 M2 PO; +[UNRECOGNIZED DRUG - OTHER] PO
== END ==
LOC: LAB 11:46 → LAB SHORT 11:46
DX: N39.0 Urinary tract infection, site not specified (principal)
CPT/HCPCS: 87086

== ENCOUNTER 2023-08-17 16:03 | Emergency (ER) | payer MEDICARE, BC ==
[~2023-08-17] VITALS: Ht 162.6 cm; Wt 72.6 kg
[2023-08-17 16:41] LABS: BASOPHILS ABSOLUTE AUTO 0.03 K/mm3 (0.00-0.23); BASOPHILS PERCENT AUTO 0 % (0-2); EOSINOPHILS ABSOLUTE AUTO 0.03 K/mm3 (0.00-0.68); EOSINOPHILS PERCENT AUTO 0 % (0-6); Hematocrit 33.8 % (33.0-51.0); Hemoglobin 11.5 g/dL (11.5-16.0); IMMATURE GRAN ABSOLUTE AUTO 0.04 K/mm3 (0.00-0.10); IMMATURE GRAN PERCENT AUTO 0 % (0-1); LYMPHOCYTES PERCENT AUTO 16 % (21-46); MONOCYTES ABSOLUTE AUTO 0.98 K/mm3 (0.16-1.47); MONOCYTES PERCENT AUTO 10 % (4-13); Mean Corpuscular HGB 32.9 pg (26.0-34.0); Mean Corpuscular Volume 97 fL (80-100); Mean Platelet Volume 9.8 fL (9.1-12.4); NEUTROPHILS ABSOLUTE AUTO 7.64 K/mm3 (1.96-9.15); NEUTROPHILS PERCENT AUTO 74 % (41-73); Platelet Count 320 K/mm3 (150-400); RDW Coefficient Variation 13.8 % (11.7-14.2); RDW Standard Deviation 48.9 fL (35.1-46.3); White Blood Cell Count 10.32 K/mm3 (4.00-11.30)
[2023-08-17 17:06] LABS: Albumin, Blood 3.7 g/dL (3.4-5.0); Bilirubin, Total 0.3 mg/dL (0.1-1.0); Bun/Creatinine Ratio 41.7 (12.0-20.0); Calcium, Blood 10.1 mg/dL (8.5-10.1); Creatinine, Blood 1.44 mg/dL (0.40-1.00); Globulin, Blood 3.8 g/dL (2.2-4.0); Magnesium, Blood 1.8 mg/dL (1.6-2.4); Potassium, Blood 5.3 mmol/L (3.5-5.5); Total Protein, Blood 7.5 g/dL (6.4-8.2)
[2023-08-17 20:03] VITALS: BP 128/79
[2023-08-17 22:52] LABS: Source, Urine Clean Catch
[2023-08-17 22:52] LABS: Influenza A, PCR NEGATIVE (NEGATIVE); Influenza B, PCR NEGATIVE (NEGATIVE); Resp Syncytial Virus, PCR NEGATIVE (NEGATIVE); SARS-Cov-2 (COVID-19) PCR, MMC NEGATIVE (NEGATIVE)
[2023-08-17 22:58] LABS: Bilirubin, Urine Neg (Neg); Blood, Urine Neg (Neg); Glucose Qualitative, Urine Neg (Neg); Ketones, Urine Neg (Neg); Leukocyte Esterase, Urine 1+ (Neg); Nitrite, Urine Neg (Neg); Protein, Urine Neg (Neg); Specific Gravity, Urine 1.015 (1.003-1.022); Urobilinogen, Urine NORM (Normal)
[2023-08-17 23:04] LABS: Appearance, Urine Clear (Clear); Color, Urine Pale Yellow (P-Yellow)
[2023-08-17 23:05] LABS: Bacteria Few /hpf; Red Blood Cells, Urine 0-2 /hpf (0-2); Squamous Epithelial Cells Few /hpf (Few)
== END 2023-08-17 23:40 | disposition home or self-care (01) ==
LOC: ER 16:03
PROVIDERS: Physician Assistant; Student in an Organized Health Care Education/Training Program
DX: N17.9 Acute kidney failure, unspecified (principal); Z88.0 Allergy status to penicillin; Z88.1 Allergy status to other antibiotic agents; Z79.899 Other long term (current) drug therapy; Z79.84 Long term (current) use of oral hypoglycemic drugs; E78.5 Hyperlipidemia, unspecified; J45.909 Unspecified asthma, uncomplicated; E11.9 Type 2 diabetes mellitus without complications; I10 Essential (primary) hypertension; E03.9 Hypothyroidism, unspecified; Z87.891 Personal history of nicotine dependence; R11.15 Cyclical vomiting syndrome unrelated to migraine; R10.84 Generalized abdominal pain
CPT/HCPCS: 0241U; 36415; 74176; 80053; 81001; 82248; 83690; 83735; 85007; 85025; 85027; 87086; 87480; 87510; 87660; 93005; 93010; 96374; 99284-25; A9270; J2405; J7030

== ENCOUNTER → 2023-08-17 | Outpatient (CLI) | payer MEDICARE, BC ==
[2023-08-17 15:54] LABS: Candida species (DNA Probe) Negative (NEGATIVE); G. vaginalis (DNA Probe) Negative (NEGATIVE); T. vaginalis (DNA Probe) Negative (NEGATIVE)
== END | disposition home or self-care (01) ==
LOC: LAB SHORT 10:02 → LAB 10:02
PROVIDERS: Nurse Practitioner
DX: R10.9 Unspecified abdominal pain (principal)
CPT/HCPCS: 87086; 87480; 87510; 87660

== ENCOUNTER → 2024-01-16 | Outpatient (CLI) | payer MEDICARE, BC ==
[~2024-01-16] MED LIST changes: +ALPR.5 PO; -ATOR20 PO; +ATOR40TA PO; +BISA10S; +DIPH25 PO; +ELIQUIS2.5 MG PO; -LEVOTHYROXINE150 MC9 PO; +LEVSOD112 PO; +LOSARTAN POTASS25 M2 PO; -METOPROLOL SUCC25 MG PO; +MYLANTA MAXIMUM10 ML; +SIME80CH PO; +TICA90TA PO
[2024-01-16 14:19] LABS: Source, Urine Voided
[2024-01-16 15:48] LABS: Appearance, Urine Clear (Clear); Bilirubin, Urine Neg (Neg); Blood, Urine Neg (Neg); Color, Urine Yellow (P-Yellow); Glucose Qualitative, Urine Neg (Neg); Ketones, Urine Neg (Neg); Leukocyte Esterase, Urine Neg (Neg); Nitrite, Urine Neg (Neg); Protein, Urine Neg (Neg); Urobilinogen, Urine NORM (Normal)
== END | disposition home or self-care (01) ==
LOC: LAB 07:45 → LAB SHORT 07:45
PROVIDERS: Family Medicine
DX: N39.0 Urinary tract infection, site not specified (principal)
CPT/HCPCS: 81003; 87086

== ENCOUNTER 2024-02-10 08:46 | Emergency (ER) | payer MEDICARE, BC ==
[~2024-02-10] VITALS: Ht 154.9 cm; Wt 77.1 kg
[~2024-02-10 08:46] MED LIST changes: -SIME80CH PO
[2024-02-10] MEDS ORDERED: DiphenhydrAMINE HCL 25 MG Cap PO ONE (09:25)
[2024-02-10] MEDS ORDERED: Albuterol 2.5 MG/3 ML VIAL INH ONE (09:25)
[2024-02-10 09:57] LABS: BASOPHILS ABSOLUTE AUTO 0.09 K/mm3 (0.00-0.23); BASOPHILS PERCENT AUTO 1 % (0-2); EOSINOPHILS ABSOLUTE AUTO 0.11 K/mm3 (0.00-0.68); EOSINOPHILS PERCENT AUTO 1 % (0-6); Hemoglobin 11.7 g/dL (11.5-16.0); IMMATURE GRAN PERCENT AUTO 1 % (0-1); LYMPHOCYTES ABSOLUTE AUTO 1.66 K/mm3 (0.84-5.20); LYMPHOCYTES PERCENT AUTO 11 % (21-46); MONOCYTES ABSOLUTE AUTO 0.73 K/mm3 (0.16-1.47); MONOCYTES PERCENT AUTO 5 % (4-13); Mean Corpuscular HGB 32.3 pg (26.0-34.0); Mean Corpuscular HGB Conc 32.5 g/dL (31.5-36.5); Mean Corpuscular Volume 99 fL (80-100); Mean Platelet Volume 9.7 fL (9.1-12.4); NEUTROPHILS ABSOLUTE AUTO 12.75 K/mm3 (1.96-9.15); NEUTROPHILS PERCENT AUTO 83 % (41-73); Platelet Count 544 K/mm3 (150-400); RDW Coefficient Variation 16.1 % (11.7-14.2); RDW Standard Deviation 57.3 fL (35.1-46.3); Red Blood Cell Count 3.62 M/mm3 (3.80-5.20); White Blood Cell Count 15.44 K/mm3 (4.00-11.30)
[2024-02-10 10:22] LABS: Albumin, Blood 4.5 g/dL (3.4-5.0); Albumin/Globulin Ratio 1.2 (0.8-1.8); Bilirubin, Total 1.1 mg/dL (0.1-1.0); Bun/Creatinine Ratio 34.5 (12.0-20.0); Calcium, Blood 10.7 mg/dL (8.5-10.1); Creatinine, Blood 1.71 mg/dL (0.40-1.00); Globulin, Blood 3.7 g/dL (2.2-4.0); Magnesium, Blood 1.8 mg/dL (1.6-2.4); Potassium, Blood 4.7 mmol/L (3.5-5.5); Total Protein, Blood 8.2 g/dL (6.4-8.2)
[2024-02-10] MEDS ORDERED: NS 1,000 ML IV SCH ×2 (10:45→12:20)
[2024-02-10 13:01] VITALS: BP 113/66
== END 2024-02-10 14:00 | disposition home or self-care (01) ==
LOC: ER 08:46
PROVIDERS: Student in an Organized Health Care Education/Training Program
DX: R09.81 Nasal congestion (principal); N17.9 Acute kidney failure, unspecified; I25.2 Old myocardial infarction; I10 Essential (primary) hypertension; E11.9 Type 2 diabetes mellitus without complications; J45.909 Unspecified asthma, uncomplicated; E78.5 Hyperlipidemia, unspecified; E03.9 Hypothyroidism, unspecified; Z87.891 Personal history of nicotine dependence; Z88.0 Allergy status to penicillin; Z88.1 Allergy status to other antibiotic agents; Z79.82 Long term (current) use of aspirin; Z79.899 Other long term (current) drug therapy; Z79.84 Long term (current) use of oral hypoglycemic drugs
CPT/HCPCS: 71046; 80053; 83735; 83880; 84145; 84484; 85025; 93005; 93010; 94640; 94664; 99285-25; A9270; J7030

== ENCOUNTER 2024-02-17 12:44 | Emergency (ER) | payer MEDICARE, BC ==
[~2024-02-17] VITALS: Ht 154.9 cm; Wt 70.8 kg
[2024-02-17 13:38] LABS: BASOPHILS ABSOLUTE AUTO 0.04 K/mm3 (0.00-0.23); BASOPHILS PERCENT AUTO 0 % (0-2); EOSINOPHILS ABSOLUTE AUTO 0.04 K/mm3 (0.00-0.68); EOSINOPHILS PERCENT AUTO 0 % (0-6); Hematocrit 33.7 % (33.0-51.0); Hemoglobin 11.3 g/dL (11.5-16.0); IMMATURE GRAN ABSOLUTE AUTO 0.08 K/mm3 (0.00-0.10); IMMATURE GRAN PERCENT AUTO 1 % (0-1); LYMPHOCYTES ABSOLUTE AUTO 1.19 K/mm3 (0.84-5.20); LYMPHOCYTES PERCENT AUTO 10 % (21-46); MONOCYTES ABSOLUTE AUTO 0.95 K/mm3 (0.16-1.47); MONOCYTES PERCENT AUTO 8 % (4-13); Mean Corpuscular HGB 32.6 pg (26.0-34.0); Mean Corpuscular HGB Conc 33.5 g/dL (31.5-36.5); Mean Corpuscular Volume 97 fL (80-100); Mean Platelet Volume 10.1 fL (9.1-12.4); NEUTROPHILS ABSOLUTE AUTO 9.79 K/mm3 (1.96-9.15); NEUTROPHILS PERCENT AUTO 81 % (41-73); Platelet Count 410 K/mm3 (150-400); RDW Coefficient Variation 15.9 % (11.7-14.2); RDW Standard Deviation 55.2 fL (35.1-46.3); Red Blood Cell Count 3.47 M/mm3 (3.80-5.20); White Blood Cell Count 12.09 K/mm3 (4.00-11.30)
[2024-02-17 13:59] LABS: Albumin, Blood 4.1 g/dL (3.4-5.0); Albumin/Globulin Ratio 1.2 (0.8-1.8); Bilirubin, Total 0.7 mg/dL (0.1-1.0); Calcium, Blood 10.4 mg/dL (8.5-10.1); Creatinine, Blood 1.52 mg/dL (0.40-1.00); Globulin, Blood 3.3 g/dL (2.2-4.0); Potassium, Blood 4.5 mmol/L (3.5-5.5); Total Protein, Blood 7.4 g/dL (6.4-8.2)
[2024-02-17] MEDS ORDERED: Ondansetron HCl 2 MG / ML 2ML Vial IV ONE (14:15)
[2024-02-17] MEDS ORDERED: NS 1,000 ML IV SCH (14:55)
[2024-02-17] MEDS ORDERED: ONDA4ODT MM (16:44)
[2024-02-17] MEDS ORDERED: SIME80CH PO (16:45)
[2024-02-17 17:16] VITALS: BP 118/68
== END 2024-02-17 17:16 | disposition home or self-care (01) ==
LOC: ER 12:44
PROVIDERS: Student in an Organized Health Care Education/Training Program
DX: K59.00 Constipation, unspecified (principal); E11.65 Type 2 diabetes mellitus with hyperglycemia; R11.0 Nausea; Z87.891 Personal history of nicotine dependence; E78.5 Hyperlipidemia, unspecified; I10 Essential (primary) hypertension; E03.9 Hypothyroidism, unspecified; J45.909 Unspecified asthma, uncomplicated; Z79.84 Long term (current) use of oral hypoglycemic drugs; Z79.01 Long term (current) use of anticoagulants; Z79.899 Other long term (current) drug therapy; Z88.0 Allergy status to penicillin; Z88.1 Allergy status to other antibiotic agents
CPT/HCPCS: 74177; 80053; 84484; 85025; 93005; 93010; 96361; 96374; 99284-25; J2405; J7030; Q9967

== ENCOUNTER 2024-02-26 15:31 | Emergency (ER) | payer MEDICARE, BC ==
[~2024-02-26] VITALS: Ht 154.9 cm; Wt 63.5 kg
[2024-02-26 20:30] VITALS: BP 140/73
== END 2024-02-26 20:49 | disposition home or self-care (01) ==
LOC: ER 15:31
DX: J44.9 Chronic obstructive pulmonary disease, unspecified (principal); D64.9 Anemia, unspecified; G47.00 Insomnia, unspecified; R60.0 Localized edema; E78.5 Hyperlipidemia, unspecified; E11.9 Type 2 diabetes mellitus without complications; I10 Essential (primary) hypertension; E03.9 Hypothyroidism, unspecified; Z88.0 Allergy status to penicillin; Z88.1 Allergy status to other antibiotic agents; Z79.84 Long term (current) use of oral hypoglycemic drugs; Z79.899 Other long term (current) drug therapy; Z79.51 Long term (current) use of inhaled steroids; Z79.890 Hormone replacement therapy; Z79.01 Long term (current) use of anticoagulants; Z79.82 Long term (current) use of aspirin; Z79.02 Long term (current) use of antithrombotics/antiplatelets; Z87.891 Personal history of nicotine dependence

== ENCOUNTER 2024-03-27 15:00 | Emergency (ER) | payer MEDICARE, BC ==
[~2024-03-27] VITALS: Ht 154.9 cm; Wt 68.5 kg
[~2024-03-27 15:00] MED LIST changes: +HYDHCL25 PO; +HYDPAM50 PO; +SIME80CH PO
[2024-03-27 15:06] VITALS: BP 164/70
[2024-03-27 15:49] LABS: BASOPHILS ABSOLUTE AUTO 0.03 K/mm3 (0.00-0.23); BASOPHILS PERCENT AUTO 0 % (0-2); EOSINOPHILS ABSOLUTE AUTO 0.07 K/mm3 (0.00-0.68); EOSINOPHILS PERCENT AUTO 1 % (0-6); Hematocrit 31.5 % (33.0-51.0); Hemoglobin 10.5 g/dL (11.5-16.0); IMMATURE GRAN ABSOLUTE AUTO 0.03 K/mm3 (0.00-0.10); IMMATURE GRAN PERCENT AUTO 0 % (0-1); LYMPHOCYTES ABSOLUTE AUTO 1.06 K/mm3 (0.84-5.20); LYMPHOCYTES PERCENT AUTO 12 % (21-46); MONOCYTES ABSOLUTE AUTO 0.65 K/mm3 (0.16-1.47); MONOCYTES PERCENT AUTO 7 % (4-13); Mean Corpuscular HGB 33.4 pg (26.0-34.0); Mean Corpuscular HGB Conc 33.3 g/dL (31.5-36.5); Mean Corpuscular Volume 100 fL (80-100); Mean Platelet Volume 9.6 fL (9.1-12.4); NEUTROPHILS ABSOLUTE AUTO 7.15 K/mm3 (1.96-9.15); NEUTROPHILS PERCENT AUTO 80 % (41-73); Platelet Count 372 K/mm3 (150-400); RDW Coefficient Variation 14.5 % (11.7-14.2); RDW Standard Deviation 53.1 fL (35.1-46.3); Red Blood Cell Count 3.14 M/mm3 (3.80-5.20); White Blood Cell Count 8.99 K/mm3 (4.00-11.30)
[2024-03-27 16:02] LABS: Source, Urine Clean Catch
[2024-03-27 16:05] LABS: Appearance, Urine Clear (Clear); Bilirubin, Urine Neg (Neg); Blood, Urine Neg (Neg); Color, Urine Yellow (P-Yellow); Glucose Qualitative, Urine Neg (Neg); Ketones, Urine Neg (Neg); Leukocyte Esterase, Urine Neg (Neg); Nitrite, Urine Neg (Neg); Protein, Urine Neg (Neg); Specific Gravity, Urine 1.015 (1.003-1.022); Urobilinogen, Urine NORM (Normal)
[2024-03-27 16:10] LABS: Albumin, Blood 3.4 g/dL (3.4-5.0); Albumin/Globulin Ratio 0.9 (0.8-1.8); Bilirubin, Total 0.5 mg/dL (0.1-1.0); Bun/Creatinine Ratio 32.8 (12.0-20.0); Calcium, Blood 9.9 mg/dL (8.5-10.1); Creatinine, Blood 1.22 mg/dL (0.40-1.00); Globulin, Blood 3.9 g/dL (2.2-4.0); Potassium, Blood 3.3 mmol/L (3.5-5.5); Total Protein, Blood 7.3 g/dL (6.4-8.2)
[2024-03-27] MEDS ORDERED: CETI5 PO (17:02)
[2024-03-27] MEDS ORDERED: LORA.5 PO (17:03)
[2024-03-27] MEDS ORDERED: Furosemide 10 MG/ML 4ML Vial IV ONE (18:10)
== END 2024-03-27 19:41 | disposition home or self-care (01) ==
LOC: ER 15:00
PROVIDERS: Student in an Organized Health Care Education/Training Program
DX: R60.0 Localized edema (principal); E78.5 Hyperlipidemia, unspecified; E11.9 Type 2 diabetes mellitus without complications; I10 Essential (primary) hypertension; E03.9 Hypothyroidism, unspecified; Z79.899 Other long term (current) drug therapy; Z79.82 Long term (current) use of aspirin; Z79.84 Long term (current) use of oral hypoglycemic drugs; Z79.51 Long term (current) use of inhaled steroids; Z88.0 Allergy status to penicillin; Z88.1 Allergy status to other antibiotic agents
CPT/HCPCS: 71046; 80053; 81003; 83690; 83880; 85025; 93005; 93010; 96374; 99284-25; J1940

== ENCOUNTER 2024-04-08 04:25 | Emergency (ER) | payer MEDICARE, BC ==
[~2024-04-08] VITALS: Ht 154.9 cm; Wt 67.6 kg
[~2024-04-08 04:25] MED LIST changes: +CETI5 PO; +LORA.5 PO; -MYLANTA MAXIMUM10 ML; +MYLANTA MAXIMUM10 ML PO
[2024-04-08 06:02] VITALS: BP 141/65
[2024-04-09] MEDS ORDERED: Acetaminophen650 M1 PO (11:54)
[2024-04-09] MEDS ORDERED: ACET500 PO (11:55)
[2024-04-09] MEDS ORDERED: ACET120S PR (11:56)
[2024-04-09] MEDS ORDERED: BRILINTA PO (12:01)
[2024-04-09] MEDS ORDERED: BUME1 PO ×2 (12:02→12:03)
[2024-04-09] MEDS ORDERED: CALCITONIN-SAL3.7 M1 (12:04)
[2024-04-09] MEDS ORDERED: CLIN300 PO (12:06)
[2024-04-09] MEDS ORDERED: DOCU100 PO (12:09)
[2024-04-09] MEDS ORDERED: LOPE2C PO (12:13)
[2024-04-09] MEDS ORDERED: MELA3 PO (12:15)
[2024-04-09] MEDS ORDERED: Methocarbamol500 MG PO (12:16)
[2024-04-09] MEDS ORDERED: OXYM.05NI (12:24)
[2024-04-09] MEDS ORDERED: POTCHL20ER PO (12:25)
[2024-04-09] MEDS ORDERED: TRAM50 PO (12:27)
[2024-04-09] MEDS ORDERED: NASACORT10.8 ML (12:29)
[2024-04-09] MEDS ORDERED: FLUO10 PO (12:31)
[2024-04-09] MEDS ORDERED: VITAMIN D3 PO (12:31)
[2024-04-09] MEDS ORDERED: IPRATROPIUM BRO30 ML (17:00)
[2024-04-11] MEDS ORDERED: Methocarbamol500 MG PO (22:48)
[2024-04-11] MEDS ORDERED: ALMACONE SUSPE355 ML PO (22:50)
[2024-04-11] MEDS ORDERED: SIME80CH PO (22:52)
[2024-04-11] MEDS ORDERED: SPIR25 PO (22:54)
[2024-04-11] MEDS ORDERED: HYDHCL25 PO (22:58)
[2024-04-15] MEDS ORDERED: NYSTATIN100000 U10 MT (14:12)
[2024-04-15] MEDS ORDERED: DOXY100 PO (14:12)
== END 2024-04-08 05:35 | disposition home or self-care (01) ==
LOC: ER 04:25
DX: F41.9 Anxiety disorder, unspecified (principal); R60.0 Localized edema; E78.5 Hyperlipidemia, unspecified; J45.909 Unspecified asthma, uncomplicated; E11.9 Type 2 diabetes mellitus without complications; I10 Essential (primary) hypertension; E03.9 Hypothyroidism, unspecified; Z79.899 Other long term (current) drug therapy; Z79.51 Long term (current) use of inhaled steroids; Z88.0 Allergy status to penicillin; Z88.1 Allergy status to other antibiotic agents
CPT/HCPCS: 99283

== ENCOUNTER 2024-04-09 11:00 | Inpatient (IN) | payer MEDICARE, BC ==
[~2024-04-09] VITALS: Ht 154.9 cm; Wt 70.5 kg
[2024-04-09 11:23] VITALS: BP 147/75
--- NOTE | 2024-04-09 11:35 | NUR ---
PATIENT ARRIVED FROM ADMITTING A DIRECT ADMIT. SHE WAS ABLE TO STAND AND PIVIOT FROM THE WHEELCHAIR TO THE BED IN THE ROOM. SHE IS A&OX4. SHE IS ON RA WITH >90% OXYGEN SATS. HER RIGHT FOOT HAS REDNESS AND ON THE BACK OF HER HEEL IS DRAINING CLEAR/YELLOW FLUID. THIS NURSE TOOK PICTURES OF THE BACK OF HER RIGHT HEEL. PATIENT DOES HAVE BILATERAL FOOT EDEMA +3. SHE IS ABLE TO WIGGLE FINGERS AND TOES WHEN ASKED BUT REPORTS HAVING DECREASED SENSATION TO BOTH FEET DUE TO HX OF DM. PATIENT IS CURRENTLY LAYING IN BED WITH CALL LIGHT IN REACH AND FAMILY MEMEBER AT BEDSIDE.
[2024-04-09] MEDS ORDERED: Acetaminophen650 M1 PO ×2 (11:54→11:58)
[2024-04-09] MEDS ORDERED: ACET500 PO ×2 (11:55)
[2024-04-09] MEDS ORDERED: ACET120S PR ×2 (11:56)
[2024-04-09] MEDS ORDERED: HydrALAZINE HCl 20 MG / ML 1ML Vial IV PRN (12:00)
[2024-04-09] MEDS ORDERED: BISA10S PR (12:00)
[2024-04-09] MEDS ORDERED: BRILINTA PO ×2 (12:01)
[2024-04-09] MEDS ORDERED: BUME1 PO ×3 (12:02→12:03)
[2024-04-09] MEDS ORDERED: CALCITONIN-SAL3.7 M1 ×2 (12:04)
[2024-04-09] MEDS ORDERED: Ondansetron HCl 2 MG / ML 2ML Vial IV PRN (12:05)
[2024-04-09] MEDS ORDERED: CLIN300 PO ×2 (12:06)
[2024-04-09] MEDS ORDERED: DOCU100 PO ×2 (12:09)
[2024-04-09] MEDS ORDERED: ELIQUIS2.5 MG PO (12:10)
[2024-04-09] MEDS ORDERED: LOPE2C PO ×2 (12:13)
[2024-04-09] MEDS ORDERED: Vancomycin HCL 1,500 MG in NS 250 ML IV ONE (12:15)
[2024-04-09] MEDS ORDERED: MELA3 PO ×2 (12:15)
[2024-04-09] MEDS ORDERED: Methocarbamol500 MG PO (12:16)
[2024-04-09] MEDS ORDERED: OXYM.05NI ×2 (12:24)
[2024-04-09] MEDS ORDERED: POTCHL20ER PO ×2 (12:25)
[2024-04-09] MEDS ORDERED: TRAM50 PO ×2 (12:27)
[2024-04-09] MEDS ORDERED: NASACORT10.8 ML ×2 (12:29)
[2024-04-09] MEDS ORDERED: VITAMIN D3 PO (12:31)
[2024-04-09] MEDS ORDERED: FLUO10 PO ×2 (12:31)
[2024-04-09 12:52] LABS: BASOPHILS ABSOLUTE AUTO 0.03 K/mm3 (0.00-0.23); BASOPHILS PERCENT AUTO 0 % (0-2); EOSINOPHILS PERCENT AUTO 1 % (0-6); Hematocrit 28.5 % (33.0-51.0); Hemoglobin 9.5 g/dL (11.5-16.0); IMMATURE GRAN ABSOLUTE AUTO 0.05 K/mm3 (0.00-0.10); IMMATURE GRAN PERCENT AUTO 1 % (0-1); LYMPHOCYTES ABSOLUTE AUTO 0.82 K/mm3 (0.84-5.20); LYMPHOCYTES PERCENT AUTO 10 % (21-46); MONOCYTES ABSOLUTE AUTO 0.66 K/mm3 (0.16-1.47); MONOCYTES PERCENT AUTO 8 % (4-13); Mean Corpuscular HGB 32.6 pg (26.0-34.0); Mean Corpuscular HGB Conc 33.3 g/dL (31.5-36.5); Mean Corpuscular Volume 98 fL (80-100); Mean Platelet Volume 9.3 fL (9.1-12.4); NEUTROPHILS ABSOLUTE AUTO 6.67 K/mm3 (1.96-9.15); NEUTROPHILS PERCENT AUTO 80 % (41-73); Platelet Count 422 K/mm3 (150-400); Red Blood Cell Count 2.91 M/mm3 (3.80-5.20); White Blood Cell Count 8.33 K/mm3 (4.00-11.30)
[2024-04-09] MEDS ORDERED: COMBIGAN 0.2%-0.5 ML BOTHEYES (12:57)
[2024-04-09] MEDS ORDERED: Simethicone 80 MG Chew PO PRN (13:05)
[2024-04-09] MEDS ORDERED: Mag Hydrox/AL Hydrox/Simeth 30 ML UDC PO PRN (13:05)
[2024-04-09] MEDS ORDERED: Methocarbamol 500 MG Tab PO PRN (13:10)
[2024-04-09] MEDS ORDERED: Bisacodyl 10 MG Supp PR PRN (13:10)
[2024-04-09] MEDS ORDERED: Magnesium Hydroxide Conc 10 ML UDC PO PRN (13:10)
[2024-04-09] MEDS ORDERED: Acetaminophen 500 MG Tab PO PRN (13:15)
[2024-04-09] MEDS ORDERED: Loperamide HCl 2 MG Cap PO PRN (13:15)
[2024-04-09 13:17] LABS: Albumin, Blood 2.8 g/dL (3.4-5.0); Albumin/Globulin Ratio 0.7 (0.8-1.8); Bilirubin, Total 0.4 mg/dL (0.1-1.0); Bun/Creatinine Ratio 20.3 (12.0-20.0); Calcium, Blood 9.6 mg/dL (8.5-10.1); Creatinine, Blood 1.28 mg/dL (0.40-1.00); Globulin, Blood 4.2 g/dL (2.2-4.0); Potassium, Blood 4.3 mmol/L (3.5-5.5)
[2024-04-09] MEDS ORDERED: TraMADol HCl 50 MG Tab PO PRN (13:20)
[2024-04-09] MEDS ORDERED: HyDROXyzine HCl 25 MG Tab PO PRN (13:20)
[2024-04-09] MEDS ORDERED: Acetaminophen 325 MG TABLET PO PRN (14:00)
[2024-04-09] MEDS ORDERED: Albuterol HFA200 ACT/6.7 GM INH INH PRN (14:20)
[2024-04-09 14:59] VITALS: BP 132/60
[2024-04-09] MEDS ORDERED: Oxymetazoline 0.05% Nasal Relief Spray 15mL BTL PRN (15:20)
[2024-04-09] MEDS ORDERED: Mometasone Furoate Inhaler 220 mcg 14 ACT INH SCH (15:25)
--- NOTE | 2024-04-09 16:18 | NUR ---
SHIFT SUMMARY: PATIENT IS [place] BUT IS A&OX4. VS ARE WNL AND IS ON RA WITH >90% OXYGEN SATS. SHE IS A SBA WITH FWW AND GAIT BELT WITH AMBULATION. HER RIGHT HEEL IS OOZING CLEAR/YELLOW OUTPUT BUT IS OPEN TO AIR. PATIENT IS VOIDING AND IS TOLERATING SMALL AMOUNTS OF PO INTAKE. PATIENT IS CURRENTLY IN THE RECLINER WITH LEGS ELEVATED AND A PILLOW UNDER BOTH ANKLES WITH CALL LIGHT IN REACH. PATIENT CALLS APPROPRIATELY. DR. MEDRANO HAS BEEN NOTIFIED OF CONSULT AND STATED "I WILL COME SEE THE PATIENT AFTER CLINIC".
[2024-04-09] MEDS ORDERED: Insulin Human Lispro 100 Units/ML 3ML Syringe SC SCH (16:30)
[2024-04-09] MEDS ORDERED: IPRATROPIUM BRO30 ML (17:00)
[2024-04-09 19:51] VITALS: BP 119/72
[2024-04-09] MEDS ORDERED: Melatonin 3 MG Tab PO SCH (21:00)
[2024-04-09] MEDS ORDERED: Timolol 0.5% Opth Soln 5 ML BOTHEYES SCH (21:00)
[2024-04-09] MEDS ORDERED: Fluticasone 0.05% Nasal Spray SCH (21:00)
[2024-04-09] MEDS ORDERED: Brimonidine Tartrate 0.2% Opth 5 ml BOTHEYES SCH (21:00)
[2024-04-09] MEDS ORDERED: LORazepam 0.5 MG Tab PO SCH (21:00)
[2024-04-09] MEDS ORDERED: Nystatin 100,000 Unit/ML Susp 5 ML UDC MT SCH (21:00)
[2024-04-09] MEDS ORDERED: Famotidine 20 MG Tab PO SCH (21:00)
[2024-04-09] MEDS ORDERED: Latanoprost 0.005% Opth Soln 2.5 ML BOTHEYES SCH (21:00)
[2024-04-09] MEDS ORDERED: Docusate Sodium 100 MG Cap PO SCH (21:00)
[2024-04-09] MEDS ORDERED: Bumetanide 1 MG Tab PO SCH (21:00)
[2024-04-09] MEDS ORDERED: Dorzolamide 2% Opth Soln BOTHEYES SCH (21:00)
[2024-04-09] MEDS ORDERED: BRINZOLAMIDE BOTHEYES SCH (21:00)
[2024-04-09] MEDS ORDERED: Apixaban 5 MG Tab PO SCH (21:00)
[2024-04-09] MEDS ORDERED: Ticagrelor 90 MG TABLET PO SCH (21:00)
[2024-04-10 03:26] VITALS: BP 133/85
[2024-04-10 05:53] LABS: Creatinine, Blood 1.17 mg/dL (0.40-1.00); Vancomycin, Random 16.6 ug/mL
[2024-04-10] MEDS ORDERED: Levothyroxine Sodium 0.112 MG Tab PO SCH (06:00)
--- NOTE | 2024-04-10 07:26 | NUR ---
SHIFT SUMMARY: PATIENT FULLY ORIENTED, COOPERATIVE, ANXIOUS. WALKED TO BATHROOM WITH FRONT WHEELED WALKER. PATIENT SLEPT INTERMITTENTLY.
[2024-04-10 07:51] VITALS: BP 117/67
[2024-04-10] MEDS ORDERED: LORazepam 2 MG/ML 1ML Injection IV SCH (08:15)
[2024-04-10] MEDS ORDERED: Furosemide 40 MG Tab PO SCH (09:00)
[2024-04-10] MEDS ORDERED: Vancomycin HCL 750 MG in NS 250 ML IV SCH (09:00)
[2024-04-10] MEDS ORDERED: Cholecalciferol 1000 Unit Tablet (=25MCG) PO SCH (09:00)
[2024-04-10] MEDS ORDERED: FLUoxetine HCl 10 MG Cap PO SCH (09:00)
[2024-04-10] MEDS ORDERED: Potassium Chloride 20 MEQ TabCR PO SCH (09:00)
[2024-04-10] MEDS ORDERED: Montelukast Sodium 10 MG Tab PO SCH (09:00)
[2024-04-10] MEDS ORDERED: Allopurinol 300 MG Tab PO SCH (09:00)
[2024-04-10] MEDS ORDERED: Metoprolol Succinate 50 MG TABCR PO SCH (09:00)
[2024-04-10] MEDS ORDERED: Atorvastatin 40 MG Tab PO SCH (09:00)
[2024-04-10] MEDS ORDERED: Calcitonin Salmon 3.7 ML Nasal Spray SCH (09:00)
[2024-04-10] MEDS ORDERED: Loratadine 10 MG Tab PO SCH (09:00)
[2024-04-10 15:27] VITALS: BP 140/77
--- NOTE | 2024-04-10 18:26 | NUR ---
SUMMARY NO ACUTE CHANGES. PT PLEASANT WITH ANXIETY. TREATED PER EMAR. ALERT AND ORIENTED X4 AND ABLE TO MAKE NEEDS KNOWN, SBA TO BATHROOM. RIGHT LEG ELEVATED AND SUPPORTED WITH PILLOWS. PT DOES NOT LIKE CURRENT DIET, DIETITIAN MET WITH PT TODAY. MRI PLANNED FOR TOMORROW. PER DR. ROSA DOW TO ORDER 1 MG IV ATIVAN 15 MIN BEFORE IMAGING
[2024-04-10 19:22] VITALS: BP 115/57
[2024-04-11 03:20] VITALS: BP 138/64
[2024-04-11 07:31] VITALS: BP 147/63
[2024-04-11] MEDS ORDERED: Lactobacil 2-S.Thermo-Bifido 1 1 Cap PO SCH (09:20)
[2024-04-11] MEDS ORDERED: LORazepam 2 MG/ML 1ML Injection IV SCH (09:20)
[2024-04-11 09:24] LABS: Bun/Creatinine Ratio 17.5 (12.0-20.0); Calcium, Blood 9.6 mg/dL (8.5-10.1); Creatinine, Blood 1.14 mg/dL (0.40-1.00); Potassium, Blood 3.9 mmol/L (3.5-5.5)
[2024-04-11 09:27] LABS: Vancomycin, Trough 18.8 ug/mL (5.0-10.0)
[2024-04-11] MEDS ORDERED: LORazepam 2 MG/ML 1ML Injection IV ONE (11:55)
--- NOTE | 2024-04-11 16:49 | NUR ---
NO ACUTE CHANGES. PT IS DROWSY FOLLOWING IV ATIVAN. R.A. ORIENTED X4. ABLE TO MAKE NEEDS KNOWN. BED ALARM ON WITH CALL LIGHT IN REACH. POOR PO INTAKE, SPEECH EVAL ORDERED, PT DOES NOT LIKE TEXTURE.
--- NOTE | 2024-04-11 17:27 | NUR ---
DR. MEDRANO AT PT BEDSIDE. PLAN TO I/D TOMORROW AT 1200. MARGARITA (FRIEND) AND SAM (COUSIN) NOTIFIED OF UPDATE. NPO AT MIDNIGHT. HOLD ALL BLOOD THINNERS
[2024-04-11 19:35] VITALS: BP 144/69
[2024-04-11] MEDS ORDERED: Methocarbamol500 MG PO ×2 (22:48)
[2024-04-11] MEDS ORDERED: DULCOLAX400 MG/5 M PO (22:49)
[2024-04-11] MEDS ORDERED: ALMACONE SUSPE355 ML PO ×2 (22:50)
[2024-04-11] MEDS ORDERED: SIME80CH PO ×2 (22:52)
[2024-04-11] MEDS ORDERED: ONDA4ODT MM (22:54)
[2024-04-11] MEDS ORDERED: SPIR25 PO ×2 (22:54)
[2024-04-11] MEDS ORDERED: VITAMIN D5000 UNIT PO (22:56)
[2024-04-11] MEDS ORDERED: HYDHCL25 PO ×2 (22:58)
[2024-04-12] VITALS (14 sets, daily range): BP systolic 103–158; BP diastolic 47–94
--- NOTE | 2024-04-12 03:58 | NUR ---
SHIFT SUMMARY. NO ACUTE CHANGES. PATIENT IS ABLE TO ANSWER ALL ORIENTATION QUESTIONS APPROPRIATELY. PATIENT IS PLEASANT AND COOPERATIVE WITH CARE. PATIENT REPORTS THAT SHE DOES NOT LIKE TO SLEEP IN BED THAT SHE USUALLY SLEEPS UPRIGHT IN A CHAIR. PATIENT SLEPT IN RECLINER IN ROOM T/O NIGHT WITH RESPIRATIONS EQUAL AND UNLABORED. PATIENT USING BSC. PLAN IS TO HAVE I&D TODAY 04/12/24 AT NOON. PATIENT HAS BEEN NPO SINCE MIDNIGHT. BLOOD THINNERS HELD. CARE IS ONGOING.
[2024-04-12 05:30] LABS: Hematocrit 28.9 % (33.0-51.0); Hemoglobin 9.5 g/dL (11.5-16.0); Mean Corpuscular HGB 32.2 pg (26.0-34.0); Mean Corpuscular HGB Conc 32.9 g/dL (31.5-36.5); Mean Corpuscular Volume 98 fL (80-100); Mean Platelet Volume 9.3 fL (9.1-12.4); Platelet Count 411 K/mm3 (150-400); RDW Coefficient Variation 14.1 % (11.7-14.2); RDW Standard Deviation 49.9 fL (35.1-46.3); Red Blood Cell Count 2.95 M/mm3 (3.80-5.20); White Blood Cell Count 7.54 K/mm3 (4.00-11.30)
[2024-04-12 06:11] LABS: Bun/Creatinine Ratio 16.8 (12.0-20.0); Calcium, Blood 9.3 mg/dL (8.5-10.1); Creatinine, Blood 1.13 mg/dL (0.40-1.00); Potassium, Blood 3.5 mmol/L (3.5-5.5)
[2024-04-12] MEDS ORDERED: NS 250 ML IV PRN (10:15)
[2024-04-12] MEDS ORDERED: Lactated Ringer's 1,000 ML IV SCH (11:20)
[2024-04-12] MEDS ORDERED: Bupivacaine 0.5% HCl 5 MG/ML 30MLVIAL ONE ×2 (11:49→12:12)
[2024-04-12] MEDS ORDERED: Lidocaine HCl 1% 30 ML SDV ONE (11:49)
--- NOTE | 2024-04-12 11:52 | NUR ---
PT HAS POWERGLIDE TO RIGHT UPPER EXTREMITY THAT FLUSHES WELL AND FLOWS TO GRAVITY.
[2024-04-12] MEDS ORDERED: Vancomycin HCL 500 MG in NS 250 ML IV SCH (12:00)
--- NOTE | 2024-04-12 12:10 | NUR ---
1135 PT BROUGHT FROM MEDICAL FLOOR TO DAY SURGERY FOR PROCEDURE. PT HAS CLOSE FRIEND WITH HER. VSS. SHE IS ORIENTED TO SELF AND HER FRIEND, BUT IS A POOR HISTORIAN AND UNAWARE ABOUT EXACT SURGERY PLAN. AWAITING TO SPEAK WITH SURGEON FOR CLARIFICATION. PT FRIEND STATES SHE HAS BEEN CONFUSED SINCE RECEIVING MEDICATIONS FOR PREVIOUS MRI. INFORM CONSENT OBTAINED. History, Chart, Medications and Allergies reviewed before start of procedure. Lungs clear T/O to Auscultation. Patient confirms NPO status and agrees with scheduled surgery. Pre-Op teaching done. Pt verbalizes understanding.
[2024-04-12] MEDS ORDERED: Lidocaine HCL 1% 10 ML MDV ONE (12:11)
[2024-04-12] MEDS ORDERED: EpiNEPhrine 1 MG/1 ML 1ML Vial ONE (12:11)
[2024-04-12] MEDS ORDERED: Lidocaine HCl 2% 10 ML SDA ONE (12:11)
--- NOTE | 2024-04-12 12:45 | NUR ---
1228: DR EPPS AT BEDSIDE TO PERFORM RIGHT POPLITEAL NERVE BLOCK PREOP. 1236: TIME OUT COMPLETE BY RN. 1239: BLOCK START TIME. 1242: BLOCK END TIME. PT TOLERATED PROCEDURE WELL. VSS MONITORED AND STABLE THROUGHOUT PROCEDURE. PT REPORTS PAIN TO HER HEEL IS IMPROVING.
--- NOTE | 2024-04-12 12:55 | NUR ---
PT GLASSES TAKEN TO PACU FOR SAFEKEEPING.
[2024-04-12] MEDS ORDERED: Midazolam HCl 1MG / ML 2ML Vial ONE (12:58)
--- NOTE | 2024-04-12 13:29 | NUR ---
04/12/24 1329 Marlen Jiménez PATIENT ON SCHEDULED VANCO. RECEIVED SCHEDULED DOSE PREOPERATIVELY.
--- NOTE | 2024-04-12 15:22 | NUR ---
THIS RN PROVIDING BREAK COVERAGE FOR PRIMARY RN. NOTIFIED OF DBP <50 BY PYTHON JAVA DEVELOPER; TAKEN WHEN SLEEPING. INSTRUCTED TO RECHECK IN 30-60 MINUTES. PRIMARY RN NOTIFIED.
--- NOTE | 2024-04-12 15:51 | NUR ---
SHIFT SUMMARY MS TRIPP IS SLEEPING CURRENTLY POST OP FROM INCISION AND DRAINAGE IN THE O.R. THIS AFTERNOON. SHE WAS OFF THE MEDICAL FLOOR FROM 1130 TO 1420HRS. SHE VERBALISED FEAR OF BEING IN PAIN BEFORE GOING TO SURGERY BUT HAS SO FAR BEEN COMFORTABLE POST-OP. DRESSING AND GUILLERMINA WRAP TO RLE INTACT. RIGHT TOES ARE WARM TO TOUCH. R LEG ELEVATED. S/B DR LEE AND ORDER FOR WOUND VAC QUESTIONED - HOLD AT THIS TIME. CLOSE RIEND "ADOPTED DAUGHTER" AT BEDSIDE WITH HER. MS TRIPP HAS POOR EYESIGHT AND USES EYE DROPS. SHE WAS ABLE TO WALK TO THE BATHROOM PRE OP WITH WALKER AND STAND-BY ASSISTANCE. BED LOW, CALL LIGHT IN REACH.
--- NOTE | 2024-04-12 17:01 | NUR ---
THIS RN PROVIDING BREAK COVERAGE FOR PRIMARY RN.
[2024-04-13 04:11] VITALS: BP 137/54
[2024-04-13 05:11] LABS: Hematocrit 30.2 % (33.0-51.0); Mean Corpuscular HGB 32.4 pg (26.0-34.0); Mean Corpuscular HGB Conc 33.1 g/dL (31.5-36.5); Mean Corpuscular Volume 98 fL (80-100); Mean Platelet Volume 9.7 fL (9.1-12.4); Platelet Count 441 K/mm3 (150-400); RDW Coefficient Variation 14.5 % (11.7-14.2); RDW Standard Deviation 52.3 fL (35.1-46.3); Red Blood Cell Count 3.09 M/mm3 (3.80-5.20); White Blood Cell Count 9.29 K/mm3 (4.00-11.30)
[2024-04-13 06:05] LABS: Calcium, Blood 9.4 mg/dL (8.5-10.1); Creatinine, Blood 0.94 mg/dL (0.40-1.00); Potassium, Blood 4.8 mmol/L (3.5-5.5)
--- NOTE | 2024-04-13 06:13 | NUR ---
END OF SHIFT SUMMARY PT A&OX4. RLE DRESSING IN PLACE. PT HAS BASELINE N/T TO BLE. INITIALLY UNABLE TO WIGGLE TOES ON RLE BUT CAN THIS AM. PT SLEPT IN RECLINER DURING NIGHT PER PREFERENCE. UP TO BSC WITH PWB AND FWW, TOLERATING WELL. MEDICATED FOR PAIN X1. NO ACUTE EVENTS OVERNIGHT.
[2024-04-13 06:58] VITALS: BP 132/63
--- NOTE | 2024-04-13 11:26 | NUR ---
MD CALL TELEPHONE ORDER FROM DR MEDRANO FOR DAILY WOUND DRESSING CHANGES, ORDER READ BACK AND ENTERED INTO [employer]. DR MEDRANO GAVE TELEPHONE ORDER FOR ULTRAM 25MG PO EXTRA DOSE BEFORE DRESSING CHANGE. READ BACK DONE.
[2024-04-13 11:41] LABS: Vancomycin, Trough 17.1 ug/mL (5.0-10.0)
[2024-04-13] MEDS ORDERED: Vancomycin HCL 500 MG in NS 250 ML IV SCH (12:00)
--- NOTE | 2024-04-13 14:17 | NUR ---
DRESSING DRESSING CHANGE DONE AFTER ULTRAM PO. DRESSING SOAKED OFF WOUND, REPACKED AND REDRESSED ORDERED. MS TRIPP TOLERATED THE PROCEDURE WELL AND PAIN NOW DOWN TO 5/10. PHOTO TAKEN FOR THE CHART.
[2024-04-13 16:33] VITALS: BP 142/69
--- NOTE | 2024-04-13 18:34 | NUR ---
A&O X3, KATYA POWERGLIDE, BLOOD RETURN, I&D COMPLETED 04/12 RIGHT HEEL, CHANGE DRESSING 04/13. PT EXPERIENCE ANXIETY, CHF LASIX GIVEN FOR RIGHT LEG AND FOOT SWELLING, TX EFFECTIVE. WOUND ORDERS ON [place].
[2024-04-13 19:00] VITALS: BP 167/86
--- NOTE | 2024-04-14 04:12 | NUR ---
COMMERCIAL LOAN REVIEWER SUMMARY BP ELEVATED, OTHERWISE VSS. HAD AN APPAREANT EPISODE OF FORGETFULNESS AT HS, FRIEND CALLED AND WAS CONCERNED. PT VOICED SHE WAS TIRED AND WAS EMBARASSED RE THE SITUATION. OTHERWISE ALERT TO QUESTIONS, ETC. COOPERATIVE WITH CARE. TOLERATED MEDS WITH APPLESAUCE. SLEPT INTERMITTENTLY IN CHAIR AT BEDSIDE, THEN AFTER MULTIPLE ATTEMPTS TO ARRANGE SELF IN CHAIR AND SOME APPARENT EPISODES OF ANXIETY OF PACING IN ROOM, CHAIR ALARM ENACTED FOR SAFETY. LATER, VOICED DESIRE TO "TAKE A WALK", NURSE ACCOMPANIED HER SHE USED HER 4 WHEEL WALKER FOR SHORT WALK ABOUT HALLWAY. HAS BEEN RESTING QUIELTY BACK IN CHAIR WITH FEW INTERRUPTIONS SINCE. CALL LIGHT IN REACH CHAIR ALARM ON FOR SAFETY. WILL CONTINUE TO MONITOR
[2024-04-14 05:21] VITALS: BP 148/77
[2024-04-14 07:37] VITALS: BP 129/79
--- NOTE | 2024-04-14 10:13 | NUR ---
MD CALL MS TRIPP SAID THAT SHE IS NOT FEELING WELL THIS AM, SOME NAUSEA TREATED WITH IV ZOFRAN. SHE TOOK SOME OF HER 0900 MEDS, WAITING TIL SHE FEELS BETTER TO TAKE THE REST. C/O A LOT OF BACK PAIN THIS AM, GIVEN ROBAXIN AD SHE LOOKS TO BE SLEEPING NOW. I OFFERED HER TRAMADOL, SHE SAID THAT IT MAKES HER FEEL FORGETFUL, DR LEE NOTIFIED AND MED DISCONTINUED, TELEPHONE ORDER FOR NORCO 5/325 Q6HRS PRN READ BACK AND ENTERED INTO [employer].
[2024-04-14] MEDS ORDERED: HYDROcodone 5-APAP 325 TAB PO PRN (10:15)
[2024-04-14 14:55] VITALS: BP 115/62
--- NOTE | 2024-04-14 18:25 | NUR ---
SHIFT SUMMARY MS TRIPP HAS RESTED WELL AND BEEN COMFORTABLE TODAY AFTER TAKING ROBAXIN THIS MORNING FOR BACK PAIN. RIGHT HEEL WOUND CLEANSED, REPACKED AND REDRESSED AFTER A SHOWER AND NORCO. SHE TOLERATED DRESSING CHANGE WITH LITTLE PAIN. GENERALLY POOR APPETITE, SHE ATE MORE OF HER LUNCH TODAY THAN ON PRIOR 2 DAYS. IN BED NOW, RESTING ON LEFT SIDE. BED LOW, CALL LIGHT IN REACH.
[2024-04-14 20:26] VITALS: BP 140/62
--- NOTE | 2024-04-15 04:21 | NUR ---
BLINDSTITCH MACHINE OPERATOR SUMMARY VSS. ALERT AND ORIENTED. UP TO BATHROOM WITH WALKER AND STAFF ASSIST. DRESSING OF RIGHT HEEL CDI. EDEMA CONTINUES OF BLE. LESS ANXIOUS TONIGHT THAN NOTED 24 HR AGO. AFFECT CHEERFUL AND COMPLIANT WITH TREATMENT. HAS BEEN RESTING QUIETLY WITH FEW INTERRUPTIONS. USES CALL LIGHT APPROPRIATELY. CALL LIGHT IN REACH, RAILS UP X 2 AND BED IN LOW POSITION FOR SAFEY. WILL CONTINUE TO MONITOR.
[2024-04-15 05:27] VITALS: BP 145/56
[2024-04-15 06:07] LABS: Bun/Creatinine Ratio 16.8 (12.0-20.0); Calcium, Blood 9.4 mg/dL (8.5-10.1); Creatinine, Blood 1.19 mg/dL (0.40-1.00); Potassium, Blood 3.9 mmol/L (3.5-5.5)
[2024-04-15 07:45] VITALS: BP 135/84
[2024-04-15] MEDS ORDERED: Spironolactone 12.5 MG TAB PO SCH (09:00)
--- NOTE | 2024-04-15 09:00 | NUR ---
pt sitting up on the side of the bed, a/ox4, pleasant and cooperative with care, follows commands well, reports pain in foot, medicated for that, lungs are clear t/o, resp even and unlabored, no cough noted, on r/a, hrr, no edema noted, ppp+1, cap refill <3 sec, vs stable, afebrile, power glide to stewart, site is clear and patent, btx4, abd flat soft nontender, voids via bathroom, skin c/w/d, except right foot has dressing in place, is c/d/i, maew, can get up in room ad mk, will work with therapy, call light in reach.
[2024-04-15] MEDS ORDERED: ALMACONE SUSPE355 ML PO (14:07)
[2024-04-15] MEDS ORDERED: VISBIOME 112.51 EACH PO (14:12)
[2024-04-15] MEDS ORDERED: NYSTATIN100000 U10 MT ×2 (14:12)
[2024-04-15] MEDS ORDERED: DOXY100 PO ×2 (14:12)
[2024-04-15 16:00] VITALS: BP 133/57
--- NOTE | 2024-04-15 19:33 | NUR ---
pt states her leg is hurting this evening, administered pain meds, and loosened her dressing, her back is hurting as well, and is tearful, will get heating pad for her, has been up ambulating with walker, has been discharged back to [facility] but will go tomorrow. call light in reach.
[2024-04-15 19:54] VITALS: BP 169/66
[2024-04-16 03:50] VITALS: BP 141/66
--- NOTE | 2024-04-16 06:17 | NUR ---
SHIFT SUMMARY: PATIENT FULLY ORIENTED, SOMETIMES NON-COOPERATIVE. REFUSED A FEW MEDS BASED ON MOOD. NEEDED NORCO FOR PAIN IN FOOT DURING THE NIGHT. PATIENT SLEPT INTERMITTENTLY THROUGH NIGHT.
[2024-04-16 07:35] VITALS: BP 150/81
[2024-04-16] MEDS ORDERED: Doxycycline Hyclate 100 MG TAB PO SCH (09:00)
--- NOTE | 2024-04-16 16:01 | NUR ---
REPORT RECEIVED VERIFIED PT A/O X3 UP IN CHAIR SLEEPING. ETHAN PILLS WITH APPLE SAUCE, DRESSING CHANGE TO RIGH HEEL DONE, EXTRA PADDING PLACED ON HEEL DO TO HEEL PAIN. MD IN AND GAVE DC ORDERS INSTRUCTIONS GIVEN TO DAUGHTER POWER GLUIDE REMOVED AND PRESSURE DRESSING APPLIED
== END 2024-04-16 13:12 | disposition home health service (06) | DRG 982 ==
LOC: PRE IP 11:00 → MEDS 11:01
PROVIDERS: Internal Medicine; Podiatrist Foot & Ankle Surgery; ADMIT Internal Medicine
PROC: 0LBN0ZZ Excision of Right Lower Leg Tendon, Open Approach (ICD-10-PCS; principal; 2024-04-12 12:00)
DX: L03.115 Cellulitis of right lower limb (principal); L02.611 Cutaneous abscess of right foot; L02.612 Cutaneous abscess of left foot; I25.10 Atherosclerotic heart disease of native coronary artery without angina pectoris; J44.9 Chronic obstructive pulmonary disease, unspecified; I48.0 Paroxysmal atrial fibrillation; Z88.0 Allergy status to penicillin; Z88.8 Allergy status to other drugs, medicaments and biological substances; B95.62 Methicillin resistant Staphylococcus aureus infection as the cause of diseases classified elsewhere; I12.9 Hypertensive chronic kidney disease with stage 1 through stage 4 chronic kidney disease, or unspecified chronic kidney disease; Z88.1 Allergy status to other antibiotic agents; I25.2 Old myocardial infarction; E11.22 Type 2 diabetes mellitus with diabetic chronic kidney disease; N18.9 Chronic kidney disease, unspecified; E78.5 Hyperlipidemia, unspecified; Z98.890 Other specified postprocedural states; E89.0 Postprocedural hypothyroidism; Z95.5 Presence of coronary angioplasty implant and graft; Z85.51 Personal history of malignant neoplasm of bladder; Z79.899 Other long term (current) drug therapy; Z79.01 Long term (current) use of anticoagulants; Z79.890 Hormone replacement therapy; F41.9 Anxiety disorder, unspecified
CPT/HCPCS: 36415; 73721; 80048; 80053; 80202; 82565; 82947; 85025; 85027; 87070; 87077; 87147; 87186; 87205; 92610; 94640; 94664; 94760; 97110; 97116; 97162; 97530; A9270; C1751; J0171; J2001; J2060; J2250; J2405; J3370; J7050; J7120

== ENCOUNTER 2024-04-26 16:26 | Emergency (ER) | payer MEDICARE, BC ==
[~2024-04-26] VITALS: Ht 154.9 cm; Wt 62.1 kg
[~2024-04-26 16:26] MED LIST changes: +ACET120S PR; +ACET500 PO; +BRILINTA PO; +BUME1 PO; +CALCITONIN-SAL3.7 M1; +CLIN300 PO; +DOCU100 PO; +FLUO10 PO; +IPRATROPIUM BRO30 ML; +MELA3 PO; +Methocarbamol500 MG PO; +NYSTATIN100000 U10 MT; +POTCHL20ER PO; +SPIR25 PO; +TRAM50 PO; +VITAMIN D3 PO
[2024-04-26 16:37] VITALS: BP 154/88
[2024-04-26] MEDS ORDERED: LORA.5 PO (16:42)
== END 2024-04-26 16:45 | disposition home or self-care (01) ==
LOC: ER 16:26
DX: Z76.0 Encounter for issue of repeat prescription (principal); E03.9 Hypothyroidism, unspecified; I10 Essential (primary) hypertension; J45.909 Unspecified asthma, uncomplicated; E11.9 Type 2 diabetes mellitus without complications; I25.2 Old myocardial infarction; E78.5 Hyperlipidemia, unspecified; Z86.73 Personal history of transient ischemic attack (TIA), and cerebral infarction without residual deficits; Z79.899 Other long term (current) drug therapy; Z88.0 Allergy status to penicillin; Z88.1 Allergy status to other antibiotic agents
CPT/HCPCS: 99281

== ENCOUNTER 2024-05-02 19:36 | Inpatient (IN) | payer MEDICARE, BC ==
[~2024-05-02] VITALS: Ht 165.1 cm; Wt 59.9 kg
[2024-05-02 20:09] LABS: BASOPHILS ABSOLUTE AUTO 0.04 K/mm3 (0.00-0.23); BASOPHILS PERCENT AUTO 1 % (0-2); EOSINOPHILS ABSOLUTE AUTO 0.03 K/mm3 (0.00-0.68); EOSINOPHILS PERCENT AUTO 0 % (0-6); Hematocrit 32.7 % (33.0-51.0); Hemoglobin 10.9 g/dL (11.5-16.0); IMMATURE GRAN ABSOLUTE AUTO 0.05 K/mm3 (0.00-0.10); IMMATURE GRAN PERCENT AUTO 1 % (0-1); LYMPHOCYTES ABSOLUTE AUTO 0.52 K/mm3 (0.84-5.20); LYMPHOCYTES PERCENT AUTO 6 % (21-46); MONOCYTES ABSOLUTE AUTO 0.68 K/mm3 (0.16-1.47); MONOCYTES PERCENT AUTO 8 % (4-13); Mean Corpuscular HGB 31.9 pg (26.0-34.0); Mean Corpuscular HGB Conc 33.3 g/dL (31.5-36.5); Mean Corpuscular Volume 96 fL (80-100); Mean Platelet Volume 10.8 fL (9.1-12.4); NEUTROPHILS ABSOLUTE AUTO 7.16 K/mm3 (1.96-9.15); NEUTROPHILS PERCENT AUTO 84 % (41-73); Platelet Count 262 K/mm3 (150-400); RDW Coefficient Variation 15.2 % (11.7-14.2); RDW Standard Deviation 53.4 fL (35.1-46.3); Red Blood Cell Count 3.42 M/mm3 (3.80-5.20); White Blood Cell Count 8.48 K/mm3 (4.00-11.30)
[2024-05-02 20:47] LABS: Albumin, Blood 2.5 g/dL (3.4-5.0); Albumin/Globulin Ratio 0.5 (0.8-1.8); Bilirubin, Total 3.1 mg/dL (0.1-1.0); Bun/Creatinine Ratio 17.9 (12.0-20.0); Creatinine, Blood 2.24 mg/dL (0.40-1.00); Globulin, Blood 5.5 g/dL (2.2-4.0); Potassium, Blood 4.9 mmol/L (3.5-5.5)
[2024-05-03] MEDS ORDERED: NS 500 ML IV ONE (00:09)
[2024-05-03] MEDS ORDERED: NS 1,000 ML IV ONE (00:09)
[2024-05-03] MEDS ORDERED: DiphenhydrAMINE HCl 50 MG Cap ONE (02:55)
[2024-05-03] MEDS ORDERED: LORazepam 0.5 MG Tab PO PRN ×2 (07:20→16:55)
[2024-05-03] MEDS ORDERED: Insulin Regular 100 UNIT/ML 10ML Vial SC SCH (07:30)
[2024-05-03] MEDS ORDERED: Apixaban 5 MG Tab PO SCH (09:00)
[2024-05-03] MEDS ORDERED: Metoprolol Succinate 50 MG TABCR PO SCH (09:00)
[2024-05-03] MEDS ORDERED: Lactated Ringer's 1,000 ML IV SCH (10:40)
[2024-05-03 14:38] LABS: BASOPHILS ABSOLUTE AUTO 0.03 K/mm3 (0.00-0.23); BASOPHILS PERCENT AUTO 0 % (0-2); EOSINOPHILS ABSOLUTE AUTO 0.01 K/mm3 (0.00-0.68); EOSINOPHILS PERCENT AUTO 0 % (0-6); Hematocrit 28.7 % (33.0-51.0); Hemoglobin 9.3 g/dL (11.5-16.0); IMMATURE GRAN ABSOLUTE AUTO 0.03 K/mm3 (0.00-0.10); IMMATURE GRAN PERCENT AUTO 0 % (0-1); International Normalized Ratio 1.13; LYMPHOCYTES PERCENT AUTO 6 % (21-46); MONOCYTES ABSOLUTE AUTO 0.54 K/mm3 (0.16-1.47); MONOCYTES PERCENT AUTO 6 % (4-13); Mean Corpuscular HGB 31.6 pg (26.0-34.0); Mean Corpuscular HGB Conc 32.4 g/dL (31.5-36.5); Mean Corpuscular Volume 98 fL (80-100); Mean Platelet Volume 11.1 fL (9.1-12.4); NEUTROPHILS ABSOLUTE AUTO 7.32 K/mm3 (1.96-9.15); NEUTROPHILS PERCENT AUTO 87 % (41-73); Platelet Count 233 K/mm3 (150-400); RDW Coefficient Variation 15.4 % (11.7-14.2); RDW Standard Deviation 54.8 fL (35.1-46.3); Red Blood Cell Count 2.94 M/mm3 (3.80-5.20); White Blood Cell Count 8.43 K/mm3 (4.00-11.30)
[2024-05-03 14:51] LABS: Creatinine, Urine Random 54.9 mg/dL (27.00-270.00)
[2024-05-03 14:52] LABS: Albumin, Blood 2.2 g/dL (3.4-5.0); Albumin/Globulin Ratio 0.5 (0.8-1.8); Bilirubin, Total 2.6 mg/dL (0.1-1.0); Bun/Creatinine Ratio 17.9 (12.0-20.0); Creatinine, Blood 2.12 mg/dL (0.40-1.00); Globulin, Blood 4.6 g/dL (2.2-4.0); Magnesium, Blood 2.9 mg/dL (1.6-2.4); Thyroid Stimulating Hormone 0.937 uIU/mL (0.360-4.800); Total Protein, Blood 6.8 g/dL (6.4-8.2)
[2024-05-03 16:43] VITALS: BP 110/68
[2024-05-03] MEDS ORDERED: NS 1,000 ML IV SCH (16:55)
[2024-05-03] MEDS ORDERED: OxyCODONE HCL 5 MG TAB PO PRN (16:55)
[2024-05-03] MEDS ORDERED: HyDROXyzine HCl 25 MG Tab PO PRN (16:55)
[2024-05-03] MEDS ORDERED: Mometasone Furoate Inhaler 220 mcg 14 ACT INH SCH (16:55)
[2024-05-03] MEDS ORDERED: Methocarbamol 500 MG Tab PO PRN (17:00)
[2024-05-03] MEDS ORDERED: Melatonin 3 MG Tab PO PRN (17:00)
[2024-05-03 19:16] VITALS: BP 120/60
--- NOTE | 2024-05-03 19:16 | NUR ---
Pt adminted to floor at 1130, denies SOB, denies any pain, A-Ox4, has not ambulated since adminision, on RA. Lungs diminished, heart NS on tele, bowel sound hyperactive, incontinent of frequent loose dark stools, MD notifed, occult stool order. Pt has unstagable pressure ulce on R heel, sliver AG applied with gauze and paige wrap, new dressing C/D/I, on DM and cardic diet. Pt can make needs known, call mckay in hand, bed in lowest position.
[2024-05-03] MEDS ORDERED: OPTHALMIC BOTHEYES SCH (21:00)
[2024-05-03] MEDS ORDERED: Ticagrelor 90 MG TABLET PO SCH (21:00)
[2024-05-03] MEDS ORDERED: Ipratropium Bromide 0.03% Nasal Spray SCH (21:00)
[2024-05-03] MEDS ORDERED: FLUoxetine HCl 10 MG Cap PO SCH (21:00)
[2024-05-03] MEDS ORDERED: Latanoprost 0.005% Opth Soln 2.5 ML BOTHEYES SCH (21:00)
[2024-05-03] MEDS ORDERED: Brimonidine Tartrate 0.2% Opth 5 ml BOTHEYES SCH (21:00)
[2024-05-03] MEDS ORDERED: Timolol 0.5% Opth Soln 5 ML BOTHEYES SCH (21:00)
[2024-05-03] MEDS ORDERED: BRINZOLAMIDE 1% BOTHEYES SCH (21:00)
[2024-05-04 04:16] VITALS: BP 121/64
[2024-05-04 05:48] LABS: BASOPHILS ABSOLUTE AUTO 0.04 K/mm3 (0.00-0.23); BASOPHILS PERCENT AUTO 1 % (0-2); EOSINOPHILS ABSOLUTE AUTO 0.02 K/mm3 (0.00-0.68); EOSINOPHILS PERCENT AUTO 0 % (0-6); Hematocrit 24.8 % (33.0-51.0); Hemoglobin 8.2 g/dL (11.5-16.0); IMMATURE GRAN ABSOLUTE AUTO 0.02 K/mm3 (0.00-0.10); IMMATURE GRAN PERCENT AUTO 0 % (0-1); LYMPHOCYTES ABSOLUTE AUTO 0.64 K/mm3 (0.84-5.20); LYMPHOCYTES PERCENT AUTO 10 % (21-46); MONOCYTES ABSOLUTE AUTO 0.62 K/mm3 (0.16-1.47); MONOCYTES PERCENT AUTO 10 % (4-13); Mean Corpuscular HGB 31.7 pg (26.0-34.0); Mean Corpuscular HGB Conc 33.1 g/dL (31.5-36.5); Mean Corpuscular Volume 96 fL (80-100); Mean Platelet Volume 10.6 fL (9.1-12.4); NEUTROPHILS ABSOLUTE AUTO 4.83 K/mm3 (1.96-9.15); NEUTROPHILS PERCENT AUTO 78 % (41-73); Platelet Count 227 K/mm3 (150-400); RDW Coefficient Variation 15.4 % (11.7-14.2); RDW Standard Deviation 54.7 fL (35.1-46.3); Red Blood Cell Count 2.59 M/mm3 (3.80-5.20); White Blood Cell Count 6.17 K/mm3 (4.00-11.30)
[2024-05-04] MEDS ORDERED: Levothyroxine Sodium 0.112 MG Tab PO SCH (06:00)
--- NOTE | 2024-05-04 06:14 | NUR ---
SHIFT SUMMARY: Pt is admitted for acute kidney injury and is a DNR. is alert and able to make needs known. ADLs have been 1p to BSC. denies pain or discomfort when asked. Telly reports sinus in the 80s
[2024-05-04 06:27] LABS: Albumin, Blood 1.9 g/dL (3.4-5.0); Albumin/Globulin Ratio 0.5 (0.8-1.8); Bilirubin, Total 2.5 mg/dL (0.1-1.0); Bun/Creatinine Ratio 18.2 (12.0-20.0); Calcium, Blood 9.1 mg/dL (8.5-10.1); Creatinine, Blood 1.98 mg/dL (0.40-1.00); Globulin, Blood 4.2 g/dL (2.2-4.0); Total Protein, Blood 6.1 g/dL (6.4-8.2)
[2024-05-04 08:01] VITALS: BP 133/64
[2024-05-04] MEDS ORDERED: Montelukast Sodium 10 MG Tab PO SCH (09:00)
[2024-05-04] MEDS ORDERED: Calcitonin Salmon 3.7 ML Nasal Spray SCH (09:00)
[2024-05-04] MEDS ORDERED: Cholecalciferol 1000 Unit Tablet (=25MCG) PO SCH (09:00)
[2024-05-04] MEDS ORDERED: Loratadine 10 MG Tab PO SCH (09:00)
[2024-05-04 12:25] LABS: Stool Occult Blood Guaiac 1 Pos (Neg)
[2024-05-04 15:47] VITALS: BP 140/54
--- NOTE | 2024-05-04 16:14 | NUR ---
PATIENT HAS NOT MADE DECISION REGARDING COLONOSCOPY. DR DEAN INFORMED PATIENT AND RN THAT DUE TO THE DELAY IN DECISION, PROCEDURE WOULD BE PRESSED OUT UNTIL MONDAY IF PATIENT STILL WILLING.
--- NOTE | 2024-05-04 17:34 | NUR ---
SHIFT SUMMARY PATIENT HAVING SEVERAL LOOSE STOOLS THIS SHIFT. ABLE TO GET TO BSC. NO DECISION MADE YET REGARDING HAVING A COLONOSCOPY, HAVE BEEN ENCOURAGING PATIENT TO CONSULT WITH FAMILY TO MAKE DECISION ON WAY OR THE OTHER. A/OX 3-4 WITH INTERMITTENT CONFUSION. POA PERSONS UPDATED ON BOARD AND IN COMPUTER FOR CONTACT INFORMATION. ABLE TO MAKE NEEDS KNOWN. CALL LIGHT IN REACH. CARES ONGOING
[2024-05-04 18:19] LABS: Hematocrit 27.7 % (33.0-51.0); Hemoglobin 9.1 g/dL (11.5-16.0)
[2024-05-04 19:08] VITALS: BP 130/62
[2024-05-04] MEDS ORDERED: Pantoprazole Sodium 40 MG Injection IV SCH (21:00)
[2024-05-05 04:11] VITALS: BP 131/61
[2024-05-05 05:55] LABS: BASOPHILS ABSOLUTE AUTO 0.03 K/mm3 (0.00-0.23); BASOPHILS PERCENT AUTO 0 % (0-2); EOSINOPHILS ABSOLUTE AUTO 0.01 K/mm3 (0.00-0.68); EOSINOPHILS PERCENT AUTO 0 % (0-6); Hemoglobin 8.4 g/dL (11.5-16.0); IMMATURE GRAN ABSOLUTE AUTO 0.03 K/mm3 (0.00-0.10); IMMATURE GRAN PERCENT AUTO 0 % (0-1); LYMPHOCYTES ABSOLUTE AUTO 0.81 K/mm3 (0.84-5.20); LYMPHOCYTES PERCENT AUTO 12 % (21-46); MONOCYTES ABSOLUTE AUTO 0.62 K/mm3 (0.16-1.47); MONOCYTES PERCENT AUTO 9 % (4-13); Mean Corpuscular HGB 31.7 pg (26.0-34.0); Mean Corpuscular HGB Conc 33.6 g/dL (31.5-36.5); Mean Corpuscular Volume 94 fL (80-100); Mean Platelet Volume 10.7 fL (9.1-12.4); NEUTROPHILS PERCENT AUTO 78 % (41-73); Platelet Count 188 K/mm3 (150-400); RDW Coefficient Variation 15.7 % (11.7-14.2); Red Blood Cell Count 2.65 M/mm3 (3.80-5.20)
--- NOTE | 2024-05-05 06:01 | NUR ---
SHIFT SUMMARY: Pt is admitted for acute kidney injury and is a DNR. is alert and able to make needs known. ADLs have been 1p to BSC. pain was taken care of with PRN pain management. Sammy reports sinus in the 70s
[2024-05-05 06:28] LABS: Bun/Creatinine Ratio 21.7 (12.0-20.0); Calcium, Blood 8.6 mg/dL (8.5-10.1); Creatinine, Blood 1.61 mg/dL (0.40-1.00); Percent Saturation 17.3 % (15.0-50.0); Potassium, Blood 3.8 mmol/L (3.5-5.5)
[2024-05-05 07:44] VITALS: BP 125/60
[2024-05-05 15:07] VITALS: BP 139/71
--- NOTE | 2024-05-05 16:50 | NUR ---
SHIFT SUMMARY PATIENT ABLE TO USE BATHROOM THIS SHIFT INSTEAD OF BSC. AMBULATED IN HALLWAY ABOUT 100FT. SITTING IN CHAIR FOR MEALS. ONE EPISODE OF AVINASH RED STOOL, DR DEAN AWARE. PATIENT STILL NOT MAKING DECISION REGARDING COLONOSCOPY. IV FLUIDS INFUSING, TOLERATING WELL. ABLE TO MAKE NEEDS KNOWN. CALL LIGHT IN REACH, CARES ONGOING.
[2024-05-05 20:41] VITALS: BP 136/60
[2024-05-06 04:45] VITALS: BP 145/66
[2024-05-06 05:05] LABS: BASOPHILS ABSOLUTE AUTO 0.02 K/mm3 (0.00-0.23); BASOPHILS PERCENT AUTO 0 % (0-2); EOSINOPHILS PERCENT AUTO 0 % (0-6); Hematocrit 25.2 % (33.0-51.0); Hemoglobin 7.7 g/dL (11.5-16.0); IMMATURE GRAN ABSOLUTE AUTO 0.02 K/mm3 (0.00-0.10); IMMATURE GRAN PERCENT AUTO 0 % (0-1); LYMPHOCYTES ABSOLUTE AUTO 0.86 K/mm3 (0.84-5.20); LYMPHOCYTES PERCENT AUTO 15 % (21-46); MONOCYTES ABSOLUTE AUTO 0.51 K/mm3 (0.16-1.47); MONOCYTES PERCENT AUTO 9 % (4-13); Mean Corpuscular HGB Conc 30.6 g/dL (31.5-36.5); Mean Platelet Volume 10.7 fL (9.1-12.4); NEUTROPHILS ABSOLUTE AUTO 4.32 K/mm3 (1.96-9.15); NEUTROPHILS PERCENT AUTO 76 % (41-73); Platelet Count 205 K/mm3 (150-400); RDW Coefficient Variation 15.9 % (11.7-14.2); RDW Standard Deviation 59.3 fL (35.1-46.3); Red Blood Cell Count 2.48 M/mm3 (3.80-5.20); White Blood Cell Count 5.73 K/mm3 (4.00-11.30)
[2024-05-06 05:09] LABS: Mean Corpuscular Volume 102 fL (80-100)
--- NOTE | 2024-05-06 05:43 | NUR ---
SHIFT SUMMARY: Pt is admitted for acute kidney injury and is a DNR. is alert and able to make needs known. ADLs have been 1p to BSC. pain was taken care of with PRN pain management. Sammy reports sinus in the 60s. ETIQUETTE TEACHER reported that there was some dark red blood mixed in with one of the stools this shift.
[2024-05-06 05:45] LABS: Albumin, Blood 1.8 g/dL (3.4-5.0); Albumin/Globulin Ratio 0.5 (0.8-1.8); Bilirubin, Total 1.3 mg/dL (0.1-1.0); Bun/Creatinine Ratio 20.4 (12.0-20.0); Calcium, Blood 8.6 mg/dL (8.5-10.1); Creatinine, Blood 1.42 mg/dL (0.40-1.00); Globulin, Blood 3.9 g/dL (2.2-4.0); Potassium, Blood 3.3 mmol/L (3.5-5.5); Total Protein, Blood 5.7 g/dL (6.4-8.2)
[2024-05-06 07:30] VITALS: BP 120/82
[2024-05-06] MEDS ORDERED: Potassium Chloride 20 MEQ TabCR PO ONE (13:10)
[2024-05-06] MEDS ORDERED: IPRATROPIUM BRO30 ML (14:08)
[2024-05-06] MEDS ORDERED: OXYCODONE-ACET1 EAC3 PO (14:12)
[2024-05-06] MEDS ORDERED: 8 HOUR ACETAMI650 MG PO (14:26)
--- NOTE | 2024-05-06 15:29 | NUR ---
Upon receiving a refarral for spiritual care, I visited the patient. She tells me about the frustrations of her medical conditions. 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 She expresses regret for the self focused life that she lived and how she desires to have family and friends near her all the times. She talks about the many places, cultures and climates that she has travelled to. The Pentecostalism zoe she heard about as a child and has held more tightly lately. We talk about ways to invest in the people that are in her world today and ways to develope greater zoe. I reinforced helpful attitudes and practices and provided therapeutic listening and prayer. PAtient voiced great appreciation for the visit and encouraged me to return another time.
--- NOTE | 2024-05-06 15:36 | NUR ---
Spiritual care visit conducted. Patient is lying in bed but tells me that he will be discharging soon. He talks about his family and his concern for his spouse who has dementia. He also talks about his Advent zoe and how he finds strength and encouragement there. He speaks of his classic cars and what Camaros and other cars he has had through the years. I provided therapeutic listening and prayer. Patient responded well and showed signs of an elevated mood.
[2024-05-06 16:20] VITALS: BP 125/67
--- NOTE | 2024-05-06 17:29 | NUR ---
SHIFT SUMMARY; PATIENT IS NOW ON CLEAR LIQUIDS PER ORDER. HE WAS CONSULTED BY FOR POSSIBLE COLONOSCOPY TOMORROW. PATIENT HAS NOTABLE AVINASH BLOOD IN STOOLS TODAY X 2. BLACK TARRY SMEARS WHEN USING BEDSIDE COMMODE OTHER TIMES. SHE COMPLAINS OF FEELING WEAK AND SOB THROUGHOUT DAY. VITAL SIGNS ARE STABLE. SHE IS AO X 4. VERY TEARY LATE THIS AFTERNOON. ASKING FOR STAFF TO CALL FAMILY AND HAVE THEM COME IN THIS EVENING. MESSAGE LEFT ON CELL PHONE BY RN FOR PATIENT THIS AFTERNOON.
[2024-05-06 19:21] VITALS: BP 141/63
[2024-05-06] MEDS ORDERED: Sodium Bicarbonate 650 MG Tab PO SCH (21:00)
[2024-05-07 02:05] VITALS: BP 149/69
[2024-05-07] MEDS ORDERED: Peg/Electrolytes 4,000 ML BTL PO ONE (06:00)
[2024-05-07 06:03] LABS: BASOPHILS ABSOLUTE AUTO 0.02 K/mm3 (0.00-0.23); BASOPHILS PERCENT AUTO 0 % (0-2); EOSINOPHILS PERCENT AUTO 0 % (0-6); Hematocrit 24.6 % (33.0-51.0); Hemoglobin 7.9 g/dL (11.5-16.0); IMMATURE GRAN ABSOLUTE AUTO 0.02 K/mm3 (0.00-0.10); IMMATURE GRAN PERCENT AUTO 0 % (0-1); LYMPHOCYTES ABSOLUTE AUTO 1.02 K/mm3 (0.84-5.20); LYMPHOCYTES PERCENT AUTO 17 % (21-46); MONOCYTES PERCENT AUTO 10 % (4-13); Mean Corpuscular HGB 31.6 pg (26.0-34.0); Mean Corpuscular HGB Conc 32.1 g/dL (31.5-36.5); Mean Corpuscular Volume 98 fL (80-100); Mean Platelet Volume 10.6 fL (9.1-12.4); NEUTROPHILS ABSOLUTE AUTO 4.25 K/mm3 (1.96-9.15); NEUTROPHILS PERCENT AUTO 72 % (41-73); Platelet Count 249 K/mm3 (150-400); RDW Coefficient Variation 16.1 % (11.7-14.2); RDW Standard Deviation 58.3 fL (35.1-46.3); White Blood Cell Count 5.91 K/mm3 (4.00-11.30)
[2024-05-07 07:05] VITALS: BP 166/71
[2024-05-07 07:08] LABS: Albumin, Blood 1.9 g/dL (3.4-5.0); Albumin/Globulin Ratio 0.5 (0.8-1.8); Bilirubin, Total 1.3 mg/dL (0.1-1.0); Bun/Creatinine Ratio 19.6 (12.0-20.0); Calcium, Blood 9.1 mg/dL (8.5-10.1); Creatinine, Blood 1.12 mg/dL (0.40-1.00); Globulin, Blood 3.7 g/dL (2.2-4.0); Potassium, Blood 3.3 mmol/L (3.5-5.5); Total Protein, Blood 5.6 g/dL (6.4-8.2)
[2024-05-07] MEDS ORDERED: Potassium Chl 20MEQ/Water100ML 100 ML IV STA (08:03)
--- NOTE | 2024-05-07 11:58 | NUR ---
PT REFUSING GOLYTLY THIS AM. SPOKE WITH TECHNICIAN'S HELPER AND HOSPITALIST. DR. AUGUSTIN ASKED IF THIS RN WOULD CALL DR. JULIEN TO EXPLAIN SITUATION. SPOKE WITH DR. JULIEN STATING THERE WAS NOT ANOTHER PREP TO BE COMPLETED AND IF REFUSING THEN D/C. SPOKE WITH PT AND FRIEND IN DEPTH AT BEDSIDE UPDATING ON SITUATION. FRIEND WAS ABLE TO TALK PT INTO DRINKING PREP AND GOING FORWARD WITH PROCEDURE. PT CURRENTLY DRINKING PREP. DR. JULIEN AND DR. AUGUSTIN UPDATED. THIS RN TO CALL DR. JULIEN POST PREP TO ADD BACK ONTO LIST.
[2024-05-07 15:37] VITALS: BP 176/76
[2024-05-07] MEDS ORDERED: Potassium Chloride 20 MEQ/15 ML UDC PO ONE (17:40)
--- NOTE | 2024-05-07 19:07 | NUR ---
SHIFT SUMMARY: PT A&O X4. OCCASIONALLY FORGETFUL. PT ORIGINALLY NOT WANTING COLONOSCOPY BUT ENDED UP CALLING FRIEND WHO WAS ABLE TO TALK PT INTO COMPLETING PREP. DR. JULIEN UPDATED THROUGHOUT DAY. BY THE TIME PT WAS DONE WITH PREP, ANESTHESIOLOGIST HAD GONE HOME. DR. JULIEN ARRIVED TO ROOM TO UPDATE PT. PT INITAL IV OUT OVERNIGHT. POWERGLIDE PLACED BY DANIEL PINEDA. POTASSIUM CHLORIDE + IV FLUID BARELY BEGAN THEN POWERGLIDE WENT BAD. NEW POWERGLIDE PLACED BY DANIEL TIDWELL. ABOUT ONE HOUR LATER THAT POWERGLIDE WENT BAD. AIRCRAFT STEEL FABRICATOR CALLED ICU NURSE TO ATTEMPT PICC LINE. PICC ATTEMPTED TWICE W/O SUUCCESS. NEW POWERGLIDE PLACED BY GRAVITY PROSPECTOR. PROTONIX CHANGED TO PO AND ONE TIME 20MEQ KCL ELIXER ORDERED. PT FRIEND IN ROOM ALL DAY HELPING TO ENSURE PT WAS DRINKING PREP. CALL LIGHT IN REACH. BED IN LOWEST POSITION.
[2024-05-07 19:34] VITALS: BP 118/77
[2024-05-07] MEDS ORDERED: Pantoprazole Sodium 40 MG Tab PO SCH (21:00)
--- NOTE | 2024-05-07 22:42 | NUR ---
HS BLOOD GLUCOSE WAS 78, ENCOURAGED AND TOLERATED CUP OF APPLE JUICE. ASYMPTOMATIC. CALL LIGHT IN REACH
[2024-05-08] VITALS (8 sets, daily range): BP systolic 133–160; BP diastolic 56–81
--- NOTE | 2024-05-08 03:48 | NUR ---
ARTIFICIAL SNOW MAKING MACHINE OPERATOR SUMMARY VSS. ALERT AND ORIENTED. WAS PREPPED FOR COLONOSCOPY ON DAY SHIFT BUT WAS CANCELLED ACCORDING TO AM RN DUE TO CERTAIN STAFF HAD GONE HOME BEFORE IT COULD BE DONE. MD REORDERED PREP TO BE DONE AGAIN IN THE AM. PT HAD BMS OF MOSTLY CLEAR LIQUIDS ON THIS SHIFT. NAUSEATED AT TIMES AND HAD SOME PAIN - SEE MAR FOR DETAILS. NO NOTED BLOODY STOOLS. WAS SLEEPING IN THE BED FIRST PART OF THE SHIFT BUT VOICED IT WAS UNCOMFORTABLE AND WAS TRANSFERRED TO RECLINER, HAS BEEN RESTING QUIETLY WITH FEW INTERRUPTIONS SINCE. CALL LIGHT IN REACH. ABLE TO REPOSITION SELF. WILL CONTINUE TO MONITOR
[2024-05-08 05:18] LABS: BASOPHILS ABSOLUTE AUTO 0.02 K/mm3 (0.00-0.23); BASOPHILS PERCENT AUTO 0 % (0-2); EOSINOPHILS PERCENT AUTO 0 % (0-6); Hemoglobin 7.8 g/dL (11.5-16.0); IMMATURE GRAN ABSOLUTE AUTO 0.03 K/mm3 (0.00-0.10); IMMATURE GRAN PERCENT AUTO 1 % (0-1); LYMPHOCYTES ABSOLUTE AUTO 1.22 K/mm3 (0.84-5.20); LYMPHOCYTES PERCENT AUTO 21 % (21-46); MONOCYTES ABSOLUTE AUTO 0.57 K/mm3 (0.16-1.47); MONOCYTES PERCENT AUTO 10 % (4-13); Mean Corpuscular HGB 31.8 pg (26.0-34.0); Mean Corpuscular HGB Conc 32.5 g/dL (31.5-36.5); Mean Corpuscular Volume 98 fL (80-100); Mean Platelet Volume 10.3 fL (9.1-12.4); NEUTROPHILS ABSOLUTE AUTO 4.04 K/mm3 (1.96-9.15); NEUTROPHILS PERCENT AUTO 69 % (41-73); Platelet Count 239 K/mm3 (150-400); RDW Coefficient Variation 15.9 % (11.7-14.2); RDW Standard Deviation 56.5 fL (35.1-46.3); Red Blood Cell Count 2.45 M/mm3 (3.80-5.20); White Blood Cell Count 5.88 K/mm3 (4.00-11.30)
[2024-05-08 05:49] LABS: Bun/Creatinine Ratio 15.5 (12.0-20.0); Creatinine, Blood 0.97 mg/dL (0.40-1.00); Potassium, Blood 3.6 mmol/L (3.5-5.5)
[2024-05-08] MEDS ORDERED: Peg/Electrolytes 4,000 ML BTL PO ONE ×2 (08:00→09:20)
[2024-05-08] MEDS ORDERED: Lactated Ringer's 1,000 ML IV SCH (14:40)
[2024-05-08] MEDS ORDERED: NS 1,000 ML IV ONE (15:25)
[2024-05-08] MEDS ORDERED: NS 1,000 ML IV SCH (15:25)
--- NOTE | 2024-05-08 15:38 | NUR ---
PT TAKEN DOWN FOR COLONOSCOPY 1450 FREQ STOOL RUNNING CLEAR HINT OF YELLOW COLOR AND SCANT FLECKS. 4 LIQ WATERY STOOLS THIS AM AFTER CONSUMING ADDITIONAL 1L OF GOLYTELY.
[2024-05-08] MEDS ORDERED: propofoL 40 ML IV ONE (16:08)
[2024-05-08] MEDS ORDERED: propofoL 20 ML IV ONE ×2 (16:14→16:15)
--- NOTE | 2024-05-08 17:13 | NUR ---
05/08/24 1713 Cecile Mcmillan 1620 INTO ENDO 1-History, Chart, Medications and Allergies reviewed before start of procedure.MONITOR INTACT WITH CONTINUOUS PULSE OXIMETRY, CONTINUOUS END TITAL CO2, AND INTERMITTENT BLOOD PRESSURE. 3-LEAD EKG REVIEWED WITH PHYSICIAN PRIOR TO START OF PROCEDURE.O2 VIA POM INTACT THROUGHOUT SEDATION/PROCEDURE. DR. WEBB AND SHWETA, MONICA PROVIDING MAC-SEE ANESTHESIA RECORD.
--- NOTE | 2024-05-08 19:36 | NUR ---
PT RETURNED FROM COLONOSCOPY PROCEDURE 1714, SLEEPY BUT EASILY AROUSABLE, FOLLOWS COMMANDS. INCONT LOOSE WATERY STOOL, CLEANED AND TURNED TO SIDE. DENIES ANY PAIN. BOTTOM PINK MILDLY EXCORIETED FROM MULT STOOLS, APPLIEC SKIN BARRIER. OFFERED SIPS OF CLEARS. DECLINED CREAL LIQ TRAY. VSS, WILL ANNIA
--- NOTE | 2024-05-08 19:37 | NUR ---
SUMMARY- PT HAD COLONOSCOPY TODAY. PLAN TO GO HOME WITH MIRILAX ADDED TO RX REGEMINE. ADAT, PT HAS HAD ONLY SIPS SINCE PROCEDURE. STARTED ON IVF AFTER CLARIFICATION WITH DR FLYNN ON RATE OF NS T 100ML HR FOR ONE LITER. MEDICATED ONCE AROUND 1800 WITH OXY 5MG FOR KNEE AND BACK PAIN. ABD ROUND, BT NORMOACTIVE. PT MAKES NEEDS KNOWN, GOT UP TO VOID 1 SBA, WANTS TO SIT IN THE CHAIR FOR BACK COMFORT AT THE END OF THE SHIFT. REPORTED ALL TO SOFÍA. DAUGHTER'S # ON THE BOARD, RN TO CALL MARGARITA 08/05 FOR QUESTIONS OR CONCERNS.
[2024-05-08] MEDS ORDERED: D5W-1/2NS 1,000 ML IV SCH (22:05)
--- NOTE | 2024-05-08 23:22 | NUR ---
Blood glucose: Patient had a blood glucose reading of 74 at HS, juice and yogurt were given. Alison Nye np was notified and IVF were changed to D5 1/2 NS @ 70ml/hr.
[2024-05-09 02:56] VITALS: BP 121/61
[2024-05-09 07:37] VITALS: BP 158/76
--- NOTE | 2024-05-09 07:40 | NUR ---
SHIFT SUMMARY: BLOOD GLUCOSE REMAINED STABEL WITH D5 1/2 NS WAS STARTED. NO REPORTS OF PAIN. PATIENT IS UP TO BS WITH ASSIST ON 1 TO VOID. PATIENT SLEPT WELL AND VSS.
[2024-05-09] MEDS ORDERED: OXYC5 PO (11:25)
[2024-05-09] MEDS ORDERED: MIRALAX17 GM PO (11:26)
--- NOTE | 2024-05-09 13:32 | NUR ---
PT DC'D WITH INSTRUCTIONS TO LEEANA MAHAN. RN CALLED REPORT TO BLANK. WHEELCHAIR OUT TO PRIVATE CAR, FAMILY TO TX PT TO FACILITY AT 1310. BELONGINS SENT WITH PT INCLUDING CELL PHONE.
== END 2024-05-09 13:12 | disposition home health service (06) | DRG 378 ==
LOC: ER 19:36 → MEDS 05-03 03:56
PROVIDERS: Family Medicine; Internal Medicine Gastroenterology; Student in an Organized Health Care Education/Training Program; ADMIT Student in an Organized Health Care Education/Training Program
PROC: 0DBL8ZZ Excision of Transverse Colon, Via Natural or Artificial Opening Endoscopic (ICD-10-PCS; 2024-05-08)
PROC: 0DBK8ZZ Excision of Ascending Colon, Via Natural or Artificial Opening Endoscopic (ICD-10-PCS; principal; 2024-05-08 12:30)
DX: K57.31 Diverticulosis of large intestine without perforation or abscess with bleeding (principal); D62 Acute posthemorrhagic anemia; N17.9 Acute kidney failure, unspecified; E87.6 Hypokalemia; I25.10 Atherosclerotic heart disease of native coronary artery without angina pectoris; E11.22 Type 2 diabetes mellitus with diabetic chronic kidney disease; R74.01 Elevation of levels of liver transaminase levels; Z66 Do not resuscitate; K63.5 Polyp of colon; E78.5 Hyperlipidemia, unspecified; I12.9 Hypertensive chronic kidney disease with stage 1 through stage 4 chronic kidney disease, or unspecified chronic kidney disease; E86.0 Dehydration; I48.0 Paroxysmal atrial fibrillation; J44.9 Chronic obstructive pulmonary disease, unspecified; M10.9 Gout, unspecified; H40.9 Unspecified glaucoma; K21.9 Gastro-esophageal reflux disease without esophagitis; N18.9 Chronic kidney disease, unspecified; E03.9 Hypothyroidism, unspecified; K59.09 Other constipation; Z85.51 Personal history of malignant neoplasm of bladder; Z95.5 Presence of coronary angioplasty implant and graft; Z86.73 Personal history of transient ischemic attack (TIA), and cerebral infarction without residual deficits; I25.2 Old myocardial infarction; Z88.0 Allergy status to penicillin; Z88.1 Allergy status to other antibiotic agents; Z79.890 Hormone replacement therapy; Z79.02 Long term (current) use of antithrombotics/antiplatelets; Z79.01 Long term (current) use of anticoagulants; Z92.21 Personal history of antineoplastic chemotherapy; Z92.3 Personal history of irradiation; Z87.891 Personal history of nicotine dependence; Z79.891 Long term (current) use of opiate analgesic
CPT/HCPCS: 36415; 74018; 74177; 76705; 80048; 80053; 82272; 82570; 82607; 82728; 82746; 82947; 83540; 83550; 83735; 84300; 84443; 85014; 85018; 85025; 85610; 94640; 94664; 94760; 96360-59; 96361; 97116; 97162; 99285-25; A9270; C1751; C9113; J1815; J2704; J3480; J7030; J7042; J7120; Q9967

== ENCOUNTER → 2024-05-14 | Outpatient (CLI) | payer MEDICARE, BC ==
[~2024-05-14] MED LIST changes: +8 HOUR ACETAMI650 MG PO; +MIRALAX17 GM PO; +OXYC5 PO; +OXYCODONE-ACET1 EAC3 PO
[2024-05-15 14:06] LABS: Appearance, Urine Cloudy (Clear); Bilirubin, Urine Neg (Neg); Blood, Urine 2+ (Neg); Color, Urine Yellow (P-Yellow); Glucose Qualitative, Urine Neg (Neg); Ketones, Urine Neg (Neg); Leukocyte Esterase, Urine 3+ (Neg); Nitrite, Urine Neg (Neg); Protein, Urine 2+ (Neg); Urobilinogen, Urine NORM (Normal)
[2024-05-15 14:18] LABS: Bacteria Many /hpf; Hyaline Casts 0-2 /lpf (0-2); Squamous Epithelial Cells Few /hpf (Few)
[2024-05-15 14:20] LABS: Mucus Heavy (0-Heavy); Triple Phosphate Crystals Mod /hpf
== END | disposition home or self-care (01) ==
LOC: LAB SHORT 18:15
PROVIDERS: Family Medicine
DX: N39.0 Urinary tract infection, site not specified (principal)
CPT/HCPCS: 81001; 87077; 87086; 87186

== ENCOUNTER → 2024-10-14 | Outpatient (CLI) | payer MEDICARE, BC ==
[2024-10-14 16:27] LABS: Source, Urine Voided
[2024-10-14 17:43] LABS: Appearance, Urine Hazy (Clear); Bilirubin, Urine Neg (Neg); Blood, Urine Neg (Neg); Color, Urine Yellow (P-Yellow); Glucose Qualitative, Urine Neg (Neg); Ketones, Urine Neg (Neg); Leukocyte Esterase, Urine 1+ (Neg); Nitrite, Urine Neg (Neg); Protein, Urine Neg (Neg); Specific Gravity, Urine 1.015 (1.003-1.022); Urobilinogen, Urine NORM (Normal)
[2024-10-14 18:06] LABS: Bacteria Many /hpf; Red Blood Cells, Urine 0-2 /hpf (0-2); Squamous Epithelial Cells Few /hpf (Few)
[2024-10-14 21:12] LABS: Creatinine, Urine Random 62.5 mg/dL (27.00-270.00); Microalb/Creat Ratio UR, Rand 11.808 mg/g (0.000-30.000); Microalbumin, Random Urine 7.38 mg/L (0.000-20.000)
== END ==
LOC: LAB SHORT 14:47 → LAB FUT 08-20 12:00
PROVIDERS: Hospitalist
DX: N18.2 Chronic kidney disease, stage 2 (mild) (principal)
CPT/HCPCS: 81001; 82043; 82570

== ENCOUNTER 2024-12-26 20:40 | Emergency (ER) | payer OTHER, MEDICARE, BC ==
[~2024-12-26] VITALS: Ht 160 cm; Wt 65.8 kg
[2024-12-26 22:00] VITALS: BP 193/81
== END 2024-12-26 22:56 | disposition home or self-care (01) ==
LOC: ER 20:40
DX: Z04.3 Encounter for examination and observation following other accident (principal); Z79.01 Long term (current) use of anticoagulants; E78.5 Hyperlipidemia, unspecified; J45.909 Unspecified asthma, uncomplicated; E11.9 Type 2 diabetes mellitus without complications; I10 Essential (primary) hypertension; E03.9 Hypothyroidism, unspecified; Z79.899 Other long term (current) drug therapy; Z88.0 Allergy status to penicillin; Z88.1 Allergy status to other antibiotic agents
CPT/HCPCS: 70450; 72125

== ENCOUNTER 2025-01-04 11:52 | Inpatient (IN) | payer MEDICARE, BC ==
[~2025-01-04] VITALS: Ht 154.9 cm; Wt 64.6 kg
[2025-01-04] MEDS ORDERED: ACET325 PO (12:25)
[2025-01-04] MEDS ORDERED: ATOR20 PO (12:26)
[2025-01-04] MEDS ORDERED: Calcium Carbon500 MG PO (12:28)
[2025-01-04] MEDS ORDERED: Ipratropium/Albuterol SulF 2.5-0.5MG/3 ML Amp INH ONE (13:05)
[2025-01-04] MEDS ORDERED: PredniSONE 20 MG Tab PO ONE (13:05)
[2025-01-04] MEDS ORDERED: Albuterol 2.5 MG/3 ML VIAL INH SCH ×2 (13:05→14:35)
[2025-01-04] MEDS ORDERED: PRED20 PO (14:24)
[2025-01-04] MEDS ORDERED: ALBU90OI INH ×2 (14:25)
[2025-01-04] MEDS ORDERED: AZIT250 PO (14:25)
[2025-01-04] MEDS ORDERED: Azithromycin 250 MG Tab PO ONE (14:25)
[2025-01-04] MEDS ORDERED: FUROSEMIDE20 MG PO (15:23)
[2025-01-04] MEDS ORDERED: GUAI200 PO (15:26)
[2025-01-04] MEDS ORDERED: MEGE40T PO (15:28)
[2025-01-04] MEDS ORDERED: OMEP20ER PO (15:29)
[2025-01-04 15:48] LABS: Influenza A, PCR NEGATIVE (NEGATIVE); Influenza B, PCR NEGATIVE (NEGATIVE); Resp Syncytial Virus, PCR NEGATIVE (NEGATIVE); SARS-Cov-2 (COVID-19) PCR, MMC NEGATIVE (NEGATIVE)
[2025-01-04] MEDS ORDERED: FLU VACC TS2024-25(6MOS UP)/PF 45 MCG/0.5 ML SYRINGE IM SCH (15:50)
[2025-01-04 15:55] LABS: BASOPHILS ABSOLUTE AUTO 0.02 K/mm3 (0.00-0.23); BASOPHILS PERCENT AUTO 0 % (0-2); EOSINOPHILS PERCENT AUTO 0 % (0-6); Hematocrit 35.1 % (33.0-51.0); Hemoglobin 11.8 g/dL (11.5-16.0); IMMATURE GRAN ABSOLUTE AUTO 0.04 K/mm3 (0.00-0.10); IMMATURE GRAN PERCENT AUTO 0 % (0-1); LYMPHOCYTES ABSOLUTE AUTO 0.97 K/mm3 (0.84-5.20); LYMPHOCYTES PERCENT AUTO 8 % (21-46); MONOCYTES PERCENT AUTO 7 % (4-13); Mean Corpuscular HGB 32.2 pg (26.0-34.0); Mean Corpuscular HGB Conc 33.6 g/dL (31.5-36.5); Mean Corpuscular Volume 96 fL (80-100); NEUTROPHILS ABSOLUTE AUTO 10.06 K/mm3 (1.96-9.15); NEUTROPHILS PERCENT AUTO 85 % (41-73); Platelet Count 240 K/mm3 (150-400); RDW Coefficient Variation 12.4 % (11.7-14.2); RDW Standard Deviation 43.6 fL (35.1-46.3); Red Blood Cell Count 3.66 M/mm3 (3.80-5.20); White Blood Cell Count 11.89 K/mm3 (4.00-11.30)
[2025-01-04] MEDS ORDERED: MethylPREDNISolone Sod Succ 125 MG Vial IV SCH (16:00)
[2025-01-04] MEDS ORDERED: Calcium Carbonate 500 MG Tab Chew PO PRN (16:00)
[2025-01-04] MEDS ORDERED: Acetaminophen 325 MG TABLET PO PRN (16:00)
[2025-01-04] MEDS ORDERED: Bisacodyl 10 MG Supp PR PRN (16:05)
[2025-01-04] MEDS ORDERED: Magnesium Hydroxide Conc 10 ML UDC PO PRN (16:05)
[2025-01-04 16:10] LABS: Albumin, Blood 3.4 g/dL (3.4-5.0); Albumin/Globulin Ratio 0.9 (0.8-1.8); Bilirubin, Total 0.9 mg/dL (0.1-1.0); Calcium, Blood 9.7 mg/dL (8.5-10.1); Globulin, Blood 3.6 g/dL (2.2-4.0); Potassium, Blood 4.1 mmol/L (3.5-5.5)
[2025-01-04] MEDS ORDERED: HyDROXyzine HCl 25 MG Tab PO PRN (16:10)
[2025-01-04] MEDS ORDERED: Melatonin 3 MG Tab PO PRN (16:10)
[2025-01-04] MEDS ORDERED: Ipratropium/Albuterol SulF 2.5-0.5MG/3 ML Amp INH SCH (16:15)
[2025-01-04] MEDS ORDERED: Insulin Human Lispro 100 Units/ML 3ML Syringe SC SCH (16:30)
[2025-01-04] MEDS ORDERED: OxyCODONE HCL 5 MG TAB PO PRN (16:30)
[2025-01-04] MEDS ORDERED: Mometasone Furoate Inhaler 220 mcg 14 ACT INH SCH (17:25)
[2025-01-04 18:28] VITALS: BP 159/72
--- NOTE | 2025-01-04 18:46 | NUR ---
PT ADMITTED TO ROOM 359 AT 1845, PT ABLE TO SLOWLY AMBULATE FROM GOURNEY TO BED. A/O X4, SLEEPY. PT ORIENTED TO ROOM SET UP AND SAFETY, INSTRUCTED TO USE CALL LIGHT TO GET UP WITH ASSIST. WILL REPORT TO HEMALATHA SANCHEZ
[2025-01-04 19:56] VITALS: BP 153/75
[2025-01-04] MEDS ORDERED: Docusate Sodium 100 MG Cap PO SCH (21:00)
[2025-01-04] MEDS ORDERED: Polyethylene Glycol 3350 17 gm PO SCH (21:00)
[2025-01-04] MEDS ORDERED: Brimonidine Tartrate 0.2% Opth 5 ml BOTHEYES SCH (21:00)
[2025-01-04] MEDS ORDERED: Lactobacil 2-S.Thermo-Bifido 1 1 Cap PO SCH (21:00)
[2025-01-04] MEDS ORDERED: Ipratropium Bromide 0.03% Nasal Spray SCH (21:00)
[2025-01-04] MEDS ORDERED: Dorzolamide 2% Opth Soln BOTHEYES SCH (21:00)
[2025-01-04] MEDS ORDERED: Ticagrelor 90 MG TABLET PO SCH (21:00)
[2025-01-04] MEDS ORDERED: Apixaban 5 MG Tab PO SCH (21:00)
[2025-01-04] MEDS ORDERED: Timolol 0.5% Opth Soln 5 ML BOTHEYES SCH (21:00)
[2025-01-04] MEDS ORDERED: Latanoprost 0.005% Opth Soln 2.5 ML BOTHEYES SCH (21:00)
[2025-01-04] MEDS ORDERED: Atorvastatin 10 MG Tab PO SCH (21:00)
[2025-01-05] MEDS ORDERED: Albuterol 2.5 MG/3 ML VIAL INH PRN (02:00)
[2025-01-05 03:42] VITALS: BP 161/76
--- NOTE | 2025-01-05 03:59 | NUR ---
SHIFT SUMMARY A&OX4,LETHARGIC/SLEEPY. AMBULATES TO BR WITH ASSISTANCE OF 1, SOB W/ACTIVITY-RECOVERED WITH REST, NAD ON ROOM AIR, SKIN PALE,WARM,DRY. DENIES PAIN. RECEIVED IV SOLUMEDROL AT MIDNIGHT FOR COPD EXACERBATION. LUNG SOUND CLEAR AND DIM, TOOK MEDS WHOLE IN APPLESAUCE. USED CALL LIGHT APPROPRIATELY.
[2025-01-05 04:48] LABS: BASOPHILS PERCENT AUTO 0 % (0-2); EOSINOPHILS PERCENT AUTO 0 % (0-6); Hematocrit 29.6 % (33.0-51.0); Hemoglobin 10.4 g/dL (11.5-16.0); IMMATURE GRAN ABSOLUTE AUTO 0.03 K/mm3 (0.00-0.10); IMMATURE GRAN PERCENT AUTO 1 % (0-1); LYMPHOCYTES ABSOLUTE AUTO 0.48 K/mm3 (0.84-5.20); LYMPHOCYTES PERCENT AUTO 8 % (21-46); MONOCYTES ABSOLUTE AUTO 0.03 K/mm3 (0.16-1.47); MONOCYTES PERCENT AUTO 1 % (4-13); Mean Corpuscular HGB 32.2 pg (26.0-34.0); Mean Corpuscular HGB Conc 35.1 g/dL (31.5-36.5); Mean Corpuscular Volume 92 fL (80-100); Mean Platelet Volume 9.8 fL (9.1-12.4); NEUTROPHILS ABSOLUTE AUTO 5.73 K/mm3 (1.96-9.15); NEUTROPHILS PERCENT AUTO 91 % (41-73); Platelet Count 213 K/mm3 (150-400); RDW Standard Deviation 40.5 fL (35.1-46.3); Red Blood Cell Count 3.23 M/mm3 (3.80-5.20); White Blood Cell Count 6.27 K/mm3 (4.00-11.30)
[2025-01-05 05:06] LABS: Bun/Creatinine Ratio 26.6 (12.0-20.0); Calcium, Blood 9.5 mg/dL (8.5-10.1); Creatinine, Blood 0.98 mg/dL (0.40-1.00); Potassium, Blood 3.4 mmol/L (3.5-5.5)
[2025-01-05] MEDS ORDERED: Omeprazole 20 MG CapCR PO SCH (06:00)
[2025-01-05] MEDS ORDERED: Levothyroxine Sodium 0.112 MG Tab PO SCH (06:00)
[2025-01-05] MEDS ORDERED: Potassium Chloride 20 MEQ TabCR PO ONE (07:20)
[2025-01-05 07:21] VITALS: BP 144/80
[2025-01-05] MEDS ORDERED: NS 250 ML IV PRN (08:25)
[2025-01-05] MEDS ORDERED: Cholecalciferol 1000 Unit Tablet (=25MCG) PO SCH (09:00)
[2025-01-05] MEDS ORDERED: Azithromycin 500 MG in NS 250 ML IV SCH (09:00)
[2025-01-05] MEDS ORDERED: Montelukast Sodium 10 MG Tab PO SCH (09:00)
[2025-01-05] MEDS ORDERED: Calcitonin Salmon 3.7 ML Nasal Spray SCH (09:00)
[2025-01-05] MEDS ORDERED: Enoxaparin 40 MG/0.4 ML SYR SC SCH (09:00)
[2025-01-05] MEDS ORDERED: FLUoxetine HCl 10 MG Cap PO SCH (09:00)
[2025-01-05] MEDS ORDERED: Metoprolol Succinate 50 MG TABCR PO SCH (09:00)
[2025-01-05] MEDS ORDERED: Insulin Human Lispro 100 Units/ML 3ML Syringe SC SCH ×2 (12:56→16:30)
[2025-01-05 15:54] VITALS: BP 175/75
[2025-01-05 20:21] VITALS: BP 172/77
[2025-01-05] MEDS ORDERED: Methocarbamol 500 MG Tab PO PRN (22:00)
[2025-01-05 23:07] VITALS: BP 148/70
[2025-01-06 04:40] VITALS: BP 145/60
--- NOTE | 2025-01-06 06:02 | NUR ---
SHIFT SUMMARY 84 YR F ADMITTED ON 01/05/25. DNR. NO ACUTE CHANGES THIS SHIFT. PT C/O CHRONIC BACK PAIN AND WAS VERY UNCOMFORTABLE. 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 DOC NOTIFIED AND ORDER PUT IN. PT APPEARS TO HAVE SLEPT FOR MOST OF THE NIGHT. SHE IS PLEASANT AND COOPERATIVE WITH CARE. NO NEW CHANGES TO REPORT. BED IN LOW POSITION AND CALL LIGHT IN REACH.
[2025-01-06 07:13] VITALS: BP 143/60
[2025-01-06 08:27] LABS: Hematocrit 33.2 % (33.0-51.0); Hemoglobin 11.4 g/dL (11.5-16.0)
[2025-01-06 08:46] LABS: Bun/Creatinine Ratio 34.6 (12.0-20.0); Calcium, Blood 9.6 mg/dL (8.5-10.1); Creatinine, Blood 1.04 mg/dL (0.40-1.00); Potassium, Blood 3.6 mmol/L (3.5-5.5)
[2025-01-06] MEDS ORDERED: MethylPREDNISolone Sod Succ 125 MG Vial IV SCH (09:00)
--- NOTE | 2025-01-06 09:16 | NUR ---
pt sitting up on the side of the bed finishing breakfast, a/ox4, grindstone, cooperative with care, follow commands well, states pain is ok for now, lungs are clear in [place] dim in bases, resp even and unlabored, no cough noted, denies productive cough, hrr, no edema noted, ppp+1, cap refill<3 sec, vs stable, afebrile, piv to lwrist is a bit positional but flushes well, btx4, abd flat soft nontender, voids without diff, skin c/w/d, maew, gee, call light in reach.
[2025-01-06 11:09] VITALS: BP 142/81
[2025-01-06] MEDS ORDERED: ALBU2.5V5 INH (15:00)
[2025-01-06] MEDS ORDERED: VISBIOME 112.51 EACH PO (15:01)
[2025-01-06] MEDS ORDERED: PRED20 PO (15:01)
[2025-01-06 15:16] VITALS: BP 162/70
--- NOTE | 2025-01-06 19:19 | NUR ---
pt had an uneventful day, sits on the side of the bed most of the day, no complaints, no acute changes, was discharged back to [place] but would not take her today, will leave tomorrow. call light in reach.
[2025-01-06 20:11] VITALS: BP 171/71
[2025-01-06] MEDS ORDERED: Insulin Glargine-Yfgn 100 Unit/mL 3 ML SYR SC SCH (21:00)
[2025-01-06 23:12] VITALS: BP 137/57
[2025-01-07 02:42] VITALS: BP 140/77
--- NOTE | 2025-01-07 04:47 | NUR ---
SHIFT SUMMARY: PT AOX4 WITH SOME FORGETFULLNESS. CALLS APPROPRIATELY AND IS ABLE TO MAKE NEEDS KNOWN. SLEPT THROUGH MOST OF THE NIGHTS. TOLERATING MEDICATIONS WELL. HAS BEEN HAVING SOME PULSES DROPPING TO 45-50 BUT SATTING WELL AND PT STATES NORMAL WHILE SLEEPING. VSS. NO ACUTE EVENTS OVERNIGHT. PT IN BED SLEEPING, BED IN LOWEST POSITION, CALL LIGHT IN REACH. CONTINUING CARE.
[2025-01-07 07:47] VITALS: BP 157/90
[2025-01-07 11:12] VITALS: BP 145/66
--- NOTE | 2025-01-07 12:35 | NUR ---
DISCHARGE SUMMARY PT DISCHARGED TODAY BACK HOME TO [facility] ON RA. DISCHARGE PACKET REVIEWED AND SIGN BY PT. IV REMOVED BY ARGELIA GONZALEZ. PT PICKED UP BY [facility] IN PRIVATE VEHICLE.
== END 2025-01-07 12:16 | disposition home health service (06) | DRG 191 ==
LOC: ER 11:52 → MEDS 11:53
PROVIDERS: Student in an Organized Health Care Education/Training Program; ADMIT Hospitalist
DX: J44.1 Chronic obstructive pulmonary disease with (acute) exacerbation (principal); I48.20 Chronic atrial fibrillation, unspecified; Z66 Do not resuscitate; E78.5 Hyperlipidemia, unspecified; E11.9 Type 2 diabetes mellitus without complications; I10 Essential (primary) hypertension; I25.10 Atherosclerotic heart disease of native coronary artery without angina pectoris; H40.9 Unspecified glaucoma; M10.9 Gout, unspecified; K21.9 Gastro-esophageal reflux disease without esophagitis; E89.0 Postprocedural hypothyroidism; G89.29 Other chronic pain; G47.00 Insomnia, unspecified; F41.9 Anxiety disorder, unspecified; Z88.0 Allergy status to penicillin; Z88.1 Allergy status to other antibiotic agents; Z79.899 Other long term (current) drug therapy; Z79.890 Hormone replacement therapy; Z79.01 Long term (current) use of anticoagulants; Z85.54 Personal history of malignant neoplasm of ureter; I25.2 Old myocardial infarction; Z86.73 Personal history of transient ischemic attack (TIA), and cerebral infarction without residual deficits; Z95.5 Presence of coronary angioplasty implant and graft; Z87.891 Personal history of nicotine dependence
CPT/HCPCS: 0241U; 36415; 71046; 80048; 80053; 82947; 83036; 83605; 83880; 84145; 85014; 85018; 85025; 93005; 93010; 94640; 94644; 94645; 94664; 94760; 94762; 96375; 96376; 97110; 97116; 97162; 97165; 97530; 97535; 99285-25; A9270; G0378; J0456; J1815; J2919; J7050; J7512

== ENCOUNTER 2025-01-27 07:05 | Emergency (ER) | payer MEDICARE, BC ==
[~2025-01-27] VITALS: Ht 157.5 cm; Wt 72.6 kg
[~2025-01-27 07:05] MED LIST changes: +ALBU2.5V5 INH; +ATOR20 PO; +Calcium Carbon500 MG PO; +FUROSEMIDE20 MG PO; +GUAI200 PO; +MEGE40T PO; +OMEP20ER PO
[2025-01-27] MEDS ORDERED: ALBU90OI INH (07:20)
[2025-01-27] MEDS ORDERED: IPRAT-ALBUT 0.5-3 ML INH (07:24)
[2025-01-27] MEDS ORDERED: METAMUCIL174 GM PO (07:28)
[2025-01-27] MEDS ORDERED: Furosemide 10 MG/ML 4ML Vial IV ONE (07:45)
[2025-01-27] MEDS ORDERED: Albuterol 2.5 MG/3 ML VIAL INH PRN ×2 (07:45→08:30)
[2025-01-27] MEDS ORDERED: Ipratropium/Albuterol SulF 2.5-0.5MG/3 ML Amp INH PRN ×2 (07:55→08:30)
[2025-01-27 08:14] LABS: BASOPHILS ABSOLUTE AUTO 0.02 K/mm3 (0.00-0.23); BASOPHILS PERCENT AUTO 0 % (0-2); EOSINOPHILS ABSOLUTE AUTO 0.01 K/mm3 (0.00-0.68); EOSINOPHILS PERCENT AUTO 0 % (0-6); Hematocrit 37.3 % (33.0-51.0); IMMATURE GRAN PERCENT AUTO 1 % (0-1); LYMPHOCYTES ABSOLUTE AUTO 1.18 K/mm3 (0.84-5.20); LYMPHOCYTES PERCENT AUTO 14 % (21-46); MONOCYTES ABSOLUTE AUTO 0.63 K/mm3 (0.16-1.47); MONOCYTES PERCENT AUTO 8 % (4-13); Mean Corpuscular HGB 31.9 pg (26.0-34.0); Mean Corpuscular HGB Conc 32.2 g/dL (31.5-36.5); Mean Corpuscular Volume 99 fL (80-100); Mean Platelet Volume 9.8 fL (9.1-12.4); NEUTROPHILS PERCENT AUTO 77 % (41-73); Platelet Count 238 K/mm3 (150-400); RDW Coefficient Variation 14.3 % (11.7-14.2); RDW Standard Deviation 52.1 fL (35.1-46.3); Red Blood Cell Count 3.76 M/mm3 (3.80-5.20); White Blood Cell Count 8.24 K/mm3 (4.00-11.30)
[2025-01-27] MEDS ORDERED: MethylPREDNISolone Sod Succ 40 MG VIAL IV ONE (08:30)
[2025-01-27 08:32] LABS: Albumin, Blood 3.2 g/dL (3.4-5.0); Albumin/Globulin Ratio 0.9 (0.8-1.8); Bilirubin, Total 0.5 mg/dL (0.1-1.0); Bun/Creatinine Ratio 21.7 (12.0-20.0); Calcium, Blood 9.3 mg/dL (8.5-10.1); Creatinine, Blood 1.06 mg/dL (0.40-1.00); Globulin, Blood 3.4 g/dL (2.2-4.0); Potassium, Blood 4.2 mmol/L (3.5-5.5); Total Protein, Blood 6.6 g/dL (6.4-8.2)
[2025-01-27 09:40] VITALS: BP 136/89
[2025-01-27] MEDS ORDERED: MethylPREDNISolone Sod Succ 125 MG Vial IV SCH (12:00)
== END 2025-01-27 09:40 | disposition home or self-care (01) ==
LOC: ER 07:05
PROVIDERS: Student in an Organized Health Care Education/Training Program
DX: J44.1 Chronic obstructive pulmonary disease with (acute) exacerbation (principal); E11.9 Type 2 diabetes mellitus without complications; I25.10 Atherosclerotic heart disease of native coronary artery without angina pectoris; I10 Essential (primary) hypertension; I25.2 Old myocardial infarction; Z86.73 Personal history of transient ischemic attack (TIA), and cerebral infarction without residual deficits; Z87.891 Personal history of nicotine dependence; Z79.01 Long term (current) use of anticoagulants; Z79.52 Long term (current) use of systemic steroids; Z79.899 Other long term (current) drug therapy; Z79.890 Hormone replacement therapy
CPT/HCPCS: 71046; 80053; 85025; 93005; 93010; 96374; 99285-25; J1938; J1940

== ENCOUNTER → 2025-04-10 | Outpatient (CLI) | payer MEDICARE, BC ==
[~2025-04-10] MED LIST changes: +IPRAT-ALBUT 0.5-3 ML INH; +METAMUCIL174 GM PO
[2025-04-10 12:32] LABS: BASOPHILS ABSOLUTE AUTO 0.04 K/mm3 (0.00-0.23); BASOPHILS PERCENT AUTO 1 % (0-2); EOSINOPHILS PERCENT AUTO 0 % (0-6); Hematocrit 35.1 % (33.0-51.0); Hemoglobin 11.8 g/dL (11.5-16.0); IMMATURE GRAN ABSOLUTE AUTO 0.04 K/mm3 (0.00-0.10); IMMATURE GRAN PERCENT AUTO 1 % (0-1); LYMPHOCYTES ABSOLUTE AUTO 1.17 K/mm3 (0.84-5.20); LYMPHOCYTES PERCENT AUTO 14 % (21-46); MONOCYTES ABSOLUTE AUTO 0.73 K/mm3 (0.16-1.47); MONOCYTES PERCENT AUTO 9 % (4-13); Mean Corpuscular HGB 31.8 pg (26.0-34.0); Mean Corpuscular HGB Conc 33.6 g/dL (31.5-36.5); Mean Corpuscular Volume 95 fL (80-100); NEUTROPHILS ABSOLUTE AUTO 6.15 K/mm3 (1.96-9.15); NEUTROPHILS PERCENT AUTO 76 % (41-73); Platelet Count 296 K/mm3 (150-400); RDW Coefficient Variation 12.7 % (11.7-14.2); RDW Standard Deviation 43.4 fL (35.1-46.3); Red Blood Cell Count 3.71 M/mm3 (3.80-5.20); White Blood Cell Count 8.13 K/mm3 (4.00-11.30)
[2025-04-10 12:48] LABS: Albumin, Blood 3.5 g/dL (3.4-5.0); Albumin/Globulin Ratio 0.9 (0.8-1.8); Bilirubin, Total 0.6 mg/dL (0.1-1.0); Bun/Creatinine Ratio 22.1 (12.0-20.0); Calcium, Blood 10.2 mg/dL (8.5-10.1); Creatinine, Blood 1.45 mg/dL (0.40-1.00); Globulin, Blood 3.9 g/dL (2.2-4.0); Potassium, Blood 3.7 mmol/L (3.5-5.5); Total Protein, Blood 7.4 g/dL (6.4-8.2)
== END ==
LOC: LAB SHORT 12:28 → LAB 12:28
PROVIDERS: Physician Assistant
DX: R06.00 Dyspnea, unspecified (principal)
CPT/HCPCS: 80053; 83880; 84484; 85025

== ENCOUNTER 2025-04-15 12:32 | Emergency (ER) | payer OTHER, MEDICARE, BC ==
[~2025-04-15] VITALS: Ht 154.9 cm; Wt 71.2 kg
[2025-04-15 12:34] VITALS: BP 165/80
== END 2025-04-15 15:34 | disposition home or self-care (01) ==
LOC: ER 12:32
DX: S52.351A Displaced comminuted fracture of shaft of radius, right arm, initial encounter for closed fracture (principal); S52.611A Displaced fracture of right ulna styloid process, initial encounter for closed fracture; E78.5 Hyperlipidemia, unspecified; J45.909 Unspecified asthma, uncomplicated; E11.9 Type 2 diabetes mellitus without complications; I10 Essential (primary) hypertension; E03.9 Hypothyroidism, unspecified; K21.9 Gastro-esophageal reflux disease without esophagitis; I25.2 Old myocardial infarction; W01.0XXA Fall on same level from slipping, tripping and stumbling without subsequent striking against object, initial encounter; Z79.52 Long term (current) use of systemic steroids; Z86.73 Personal history of transient ischemic attack (TIA), and cerebral infarction without residual deficits; Z87.891 Personal history of nicotine dependence; Z79.899 Other long term (current) drug therapy; Z79.51 Long term (current) use of inhaled steroids; Z88.0 Allergy status to penicillin; Z88.1 Allergy status to other antibiotic agents
CPT/HCPCS: 29125; 73110; 99283-25; A9270

== ENCOUNTER 2025-04-27 12:25 | Emergency (ER) | payer MEDICARE, BC ==
[~2025-04-27] VITALS: Ht 152.4 cm
[2025-04-27 13:11] LABS: BASOPHILS ABSOLUTE AUTO 0.03 K/mm3 (0.00-0.23); BASOPHILS PERCENT AUTO 0 % (0-2); EOSINOPHILS ABSOLUTE AUTO 0.01 K/mm3 (0.00-0.68); EOSINOPHILS PERCENT AUTO 0 % (0-6); Hematocrit 35.6 % (33.0-51.0); Hemoglobin 11.8 g/dL (11.5-16.0); IMMATURE GRAN ABSOLUTE AUTO 0.02 K/mm3 (0.00-0.10); IMMATURE GRAN PERCENT AUTO 0 % (0-1); LYMPHOCYTES ABSOLUTE AUTO 1.28 K/mm3 (0.84-5.20); LYMPHOCYTES PERCENT AUTO 17 % (21-46); MONOCYTES ABSOLUTE AUTO 0.71 K/mm3 (0.16-1.47); MONOCYTES PERCENT AUTO 9 % (4-13); Mean Corpuscular HGB Conc 33.1 g/dL (31.5-36.5); Mean Corpuscular Volume 94 fL (80-100); NEUTROPHILS ABSOLUTE AUTO 5.55 K/mm3 (1.96-9.15); NEUTROPHILS PERCENT AUTO 73 % (41-73); NRBC ABSOLUTE 0.00 K/mm3 (0.00-0.02); NRBC Auto 0.0 /100 WBC (0.0-0.2); Platelet Count 297 K/mm3 (150-400); RDW Coefficient Variation 13.0 % (11.7-14.2); RDW Standard Deviation 44.0 fL (35.1-46.3)
[2025-04-27 13:45] LABS: Alanine Aminotransfer (ALT/SGP 19.0 U/L (12-78); Albumin, Blood 3.2 g/dL (3.4-5.0); Albumin/Globulin Ratio 0.9 (0.8-1.8); Anion Gap 11.0 mmol/L (3-11); Aspartate Aminotrans (AST/SGOT 17.0 U/L (12-37); Bilirubin, Total 0.8 mg/dL (0.1-1.0); Blood Urea Nitrogen 31.0 mg/dL (8-24); CO2, Blood 23.0 mmol/L (21-32); Calcium, Blood 9.6 mg/dL (8.5-10.1); Chloride, Blood 110.0 mmol/L (98-108); Creatinine, Blood 1.28 mg/dL (0.40-1.00); Globulin, Blood 3.7 g/dL (2.2-4.0); Glucose, Blood 168.0 mg/dL (70-99); Potassium, Blood 3.4 mmol/L (3.5-5.5); Sodium, Blood 141.0 mmol/L (136-145); Total Protein, Blood 6.9 g/dL (6.4-8.2)
[2025-04-27] MEDS ORDERED: PRED20 PO (14:02)
[2025-04-27] MEDS ORDERED: AZIT250 PO (14:02)
[2025-04-27 14:22] VITALS: BP 126/65
== END 2025-04-27 14:22 | disposition home or self-care (01) ==
LOC: ER 12:25
PROVIDERS: Emergency Medicine
DX: J44.1 Chronic obstructive pulmonary disease with (acute) exacerbation (principal); J45.901 Unspecified asthma with (acute) exacerbation; E03.9 Hypothyroidism, unspecified; E11.9 Type 2 diabetes mellitus without complications; K21.9 Gastro-esophageal reflux disease without esophagitis; E78.5 Hyperlipidemia, unspecified; Z87.891 Personal history of nicotine dependence; Z86.73 Personal history of transient ischemic attack (TIA), and cerebral infarction without residual deficits; Z79.52 Long term (current) use of systemic steroids; Z79.899 Other long term (current) drug therapy; Z88.0 Allergy status to penicillin; Z88.1 Allergy status to other antibiotic agents
CPT/HCPCS: 71045; 80053; 83880; 84484; 85025; 93005; 93010; 99285-25

== ENCOUNTER 2025-05-21 09:56 | Emergency (ER) | payer MEDICARE, BC ==
[~2025-05-21] VITALS: Ht 154.9 cm; Wt 69.4 kg
[2025-05-21 10:24] LABS: BASOPHILS ABSOLUTE AUTO 0.03 K/mm3 (0.00-0.23); BASOPHILS PERCENT AUTO 0 % (0-2); EOSINOPHILS ABSOLUTE AUTO 0.01 K/mm3 (0.00-0.68); EOSINOPHILS PERCENT AUTO 0 % (0-6); Hematocrit 33.3 % (33.0-51.0); Hemoglobin 11.0 g/dL (11.5-16.0); IMMATURE GRAN ABSOLUTE AUTO 0.03 K/mm3 (0.00-0.10); IMMATURE GRAN PERCENT AUTO 0 % (0-1); LYMPHOCYTES ABSOLUTE AUTO 0.86 K/mm3 (0.84-5.20); LYMPHOCYTES PERCENT AUTO 11 % (21-46); MONOCYTES ABSOLUTE AUTO 0.54 K/mm3 (0.16-1.47); MONOCYTES PERCENT AUTO 7 % (4-13); Mean Corpuscular HGB Conc 33.0 g/dL (31.5-36.5); Mean Corpuscular Volume 94 fL (80-100); NEUTROPHILS ABSOLUTE AUTO 6.73 K/mm3 (1.96-9.15); NEUTROPHILS PERCENT AUTO 82 % (41-73); NRBC ABSOLUTE 0.00 K/mm3 (0.00-0.02); NRBC Auto 0.0 /100 WBC (0.0-0.2); Platelet Count 280 K/mm3 (150-400); RDW Coefficient Variation 12.8 % (11.7-14.2); RDW Standard Deviation 43.9 fL (35.1-46.3)
[2025-05-21 10:51] LABS: Alanine Aminotransfer (ALT/SGP 18.0 U/L (12-78); Albumin, Blood 2.9 g/dL (3.4-5.0); Albumin/Globulin Ratio 0.7 (0.8-1.8); Anion Gap 10.0 mmol/L (3-11); Aspartate Aminotrans (AST/SGOT 15.0 U/L (12-37); Bilirubin, Total 0.6 mg/dL (0.1-1.0); Blood Urea Nitrogen 21.0 mg/dL (8-24); CO2, Blood 25.0 mmol/L (21-32); Calcium, Blood 9.2 mg/dL (8.5-10.1); Chloride, Blood 107.0 mmol/L (98-108); Creatinine, Blood 1.16 mg/dL (0.40-1.00); Globulin, Blood 3.9 g/dL (2.2-4.0); Glucose, Blood 209.0 mg/dL (70-99); Potassium, Blood 3.6 mmol/L (3.5-5.5); Sodium, Blood 138.0 mmol/L (136-145); Total Protein, Blood 6.8 g/dL (6.4-8.2)
[2025-05-21 11:54] LABS: Influenza A, PCR NEGATIVE (NEGATIVE); Influenza B, PCR NEGATIVE (NEGATIVE); Resp Syncytial Virus, PCR NEGATIVE (NEGATIVE); SARS-Cov-2 (COVID-19) PCR, MMC NEGATIVE (NEGATIVE)
[2025-05-21 13:17] VITALS: BP 163/86
== END 2025-05-21 13:25 | disposition home or self-care (01) ==
LOC: ER 09:56
PROVIDERS: Emergency Medicine; Physician Assistant
DX: F41.9 Anxiety disorder, unspecified (principal); J44.89 Other specified chronic obstructive pulmonary disease; E11.9 Type 2 diabetes mellitus without complications; I10 Essential (primary) hypertension; I25.2 Old myocardial infarction; E03.9 Hypothyroidism, unspecified; E78.5 Hyperlipidemia, unspecified; Z86.73 Personal history of transient ischemic attack (TIA), and cerebral infarction without residual deficits; Z87.891 Personal history of nicotine dependence; Z88.0 Allergy status to penicillin; Z88.1 Allergy status to other antibiotic agents; Z79.890 Hormone replacement therapy; Z79.51 Long term (current) use of inhaled steroids; Z79.01 Long term (current) use of anticoagulants; Z79.899 Other long term (current) drug therapy; Z59.89 Other problems related to housing and economic circumstances
CPT/HCPCS: 71045; 80053; 84484; 85025; 87637; 93005; 93010; 99285-25; A6590; A9270

== ENCOUNTER → 2025-08-19 | Outpatient (CLI) | payer BC ==
[2025-08-20 09:25] LABS: Source, Urine Clean Catch
[2025-08-20 09:27] LABS: Color, Urine Yellow (P-Yellow)
[2025-08-20 09:28] LABS: Bilirubin, Urine Neg (Neg); Glucose Qualitative, Urine 4+ (Neg); Ketones, Urine Neg (Neg); Leukocyte Esterase, Urine Neg (Neg); Protein, Urine Neg (Neg); Specific Gravity, Urine 1.015 (1.003-1.022); Urobilinogen, Urine NORM (Normal)
[2025-08-20 09:29] LABS: Red Blood Cells, Urine 0-2 /hpf (0-2)
== END ==
LOC: LAB 15:27 → LAB SHORT 15:27
PROVIDERS: Hospitalist
DX: N39.0 Urinary tract infection, site not specified (principal)
CPT/HCPCS: 81001